=== PATIENT | female | born 1990 | race Two or more races ===

== ENCOUNTER 2022-06-28 10:38 | Emergency (ER) | payer OTHER, MEDICAID ==
[~2022-06-28] VITALS: Ht 152.4 cm; Wt 88.1 kg
[2022-06-28 15:41] LABS: Urine Bacteria NONE SEEN /hpf (None Seen); Urine Blood Negative /uL (Negative); Urine Mucus FEW (None Seen); Urine Specific Gravity 1.035 (1.001-1.035); Urine WBC 6 /hpf (0 - 5)
[2022-06-28] MEDS ORDERED: CEPH-510 PO (15:52)
[2022-06-28 16:24] VITALS: BP 118/72
== END 2022-06-28 16:26 | disposition home or self-care (01) ==
LOC: ER 10:38
DX: O26.892 Other specified pregnancy related conditions, second trimester (principal); S33.5XXA Sprain of ligaments of lumbar spine, initial encounter; O26.891 Other specified pregnancy related conditions, first trimester; R10.2 Pelvic and perineal pain; Z3A.15 15 weeks gestation of pregnancy; Z98.890 Other specified postprocedural states; X58.XXXA Exposure to other specified factors, initial encounter; Y93.9 Activity, unspecified; Y92.89 Other specified places as the place of occurrence of the external cause; Y99.8 Other external cause status
CPT/HCPCS: 36415; 76805; 81001; 84702

== ENCOUNTER → 2022-07-30 | Outpatient (CLI) | payer OTHER ==
[~2022-07-30] MED LIST: CEPH-510 PO
[2022-07-30 10:52] LABS: Basophils % (manual) 0 (0.0-2.0); Blast Cells 0; Eosinophils % (manual) 0 (0-7); Metamyelocytes % 0; Myelocytes % 0; Promyelocytes % 0; Reactive Lymphocytes 0
[2022-07-30 10:58] LABS: Basophils # (auto) 0 10 ^3/uL (0-0.2); Basophils % (auto) 0.4 % (0.0-2.0); Eosinophils # (auto) 0.1 10 ^3/uL (0-0.8); Eosinophils % (auto) 0.7 % (0.0-7.0); Hematocrit 37.5 % (36.0-46.0); Hemoglobin 13.1 g/dL (12.2-16.2); Lymphocytes # (auto) 1.4 10 ^3/uL (0.4-5.4); Lymphocytes % (auto) 14.3 % (10.0-50.0); Mean Corpuscular Hemoglobin 32.2 pg (28.0-32.0); Mean Corpuscular Volume 91.8 fL (80.0-100.0); Monocytes # (auto) 0.6 10 ^3/uL (0-1.3); Monocytes % (auto) 5.7 % (0.0-12.0); Neutrophils # (auto) 7.7 10 ^3/uL (1.6-8.6); Neutrophils % (auto) 78.9 % (37.0-80.0); Red Blood Cells 4.09 10^6/uL (4.0-5.20); Red Cell Distribution Width 13.7 % (11.8-14.3); White Blood Cell 9.8 10^3/uL (4.4-10.8)
[2022-07-30 11:54] LABS: Albumin 3.2 g/dL (3.4-5.0); Calcium 8.7 mg/dL (8.5-10.1); Potassium 3.7 mmol/L (3.5-5.1); Uric Acid 5.4 mg/dL (2.6-6.0)
[2022-07-30 11:57] LABS: BUN/Creatinine Ratio 10.7; Bilirubin, Total 0.4 mg/dL (0.2-1.0); Total Protein 6.9 g/dL (6.4-8.2)
[2022-07-30 17:07] LABS: Band Neutrophils % (manual) 0; Lymphocytes % (manual) 19 (10.0-50.0)
[2022-07-30 17:08] LABS: Monocytes % (manual) 9 (0-12)
== END | disposition home or self-care (01) ==
LOC: LAB 10:38
PROVIDERS: ATTEND Obstetrics & Gynecology
DX: Z34.80 Encounter for supervision of other normal pregnancy, unspecified trimester (principal); Z3A.00 Weeks of gestation of pregnancy not specified
CPT/HCPCS: 36415; 80053; 84550; 85025

== ENCOUNTER → 2022-09-11 | Outpatient (CLI) | payer OTHER, MEDICAID ==
[2022-09-11 08:46] LABS: Basophils # (auto) 0 10 ^3/uL (0-0.2); Basophils % (auto) 0.3 % (0.0-2.0); Eosinophils # (auto) 0.1 10 ^3/uL (0-0.8); Eosinophils % (auto) 1.3 % (0.0-7.0); Hematocrit 35.3 % (36.0-46.0); Hemoglobin 12.2 g/dL (12.2-16.2); Mean Corpuscular Hemoglobin 32.1 pg (28.0-32.0); Mean Corpuscular Hgb Conc. 34.7 g/dL (32.0-36.0); Mean Corpuscular Volume 92.7 fL (80.0-100.0); Monocytes # (auto) 0.8 10 ^3/uL (0-1.3); Monocytes % (auto) 7.6 % (0.0-12.0); Neutrophils % (auto) 72.8 % (37.0-80.0)
== END | disposition home or self-care (01) ==
LOC: LAB 08:18
PROVIDERS: ATTEND Obstetrics & Gynecology
DX: O99.810 Abnormal glucose complicating pregnancy (principal); Z3A.00 Weeks of gestation of pregnancy not specified
CPT/HCPCS: 36415; 82951; 85025

== ENCOUNTER 2022-11-17 16:39 | Observation (INO) | payer OTHER, MEDICAID ==
[2022-11-17] MEDS ORDERED: PREN-96 PO (17:53)
== END 2022-11-17 18:07 | disposition home or self-care (01) ==
LOC: LDRP 16:39 → UNDOADMOB 16:39 → LDRP 16:56 → UNDODISOB 18:07
PROVIDERS: ADMIT Obstetrics & Gynecology; ATTEND Obstetrics & Gynecology
DX: O62.9 Abnormality of forces of labor, unspecified (principal); Z3A.36 36 weeks gestation of pregnancy
CPT/HCPCS: 59025; 81002; 94760; G0378

== ENCOUNTER → 2022-11-18 | Outpatient (CLI) | payer OTHER, MEDICAID ==
[~2022-11-18] MED LIST changes: +PREN-96 PO
[2022-11-18 10:40] LABS: Basophils # (auto) 0 10 ^3/uL (0-0.2); Basophils % (auto) 0.4 % (0.0-2.0); Eosinophils # (auto) 0.1 10 ^3/uL (0-0.8); Eosinophils % (auto) 1.2 % (0.0-7.0); Hematocrit 33.9 % (36.0-46.0); Hemoglobin 11.5 g/dL (12.2-16.2); Lymphocytes # (auto) 1.6 10 ^3/uL (0.4-5.4); Mean Corpuscular Hemoglobin 28.4 pg (28.0-32.0); Mean Corpuscular Hgb Conc. 33.8 g/dL (32.0-36.0); Mean Corpuscular Volume 84.1 fL (80.0-100.0); Monocytes # (auto) 0.8 10 ^3/uL (0-1.3); Monocytes % (auto) 8.3 % (0.0-12.0); Neutrophils % (auto) 73.1 % (37.0-80.0); Red Blood Cells 4.03 10^6/uL (4.0-5.20); White Blood Cell 9.5 10^3/uL (4.4-10.8)
[2022-11-19 07:07] LABS: RPR Non Reactive (Non Reactive)
== END | disposition home or self-care (01) ==
LOC: LAB 10:04
PROVIDERS: ATTEND Obstetrics & Gynecology
DX: Z34.80 Encounter for supervision of other normal pregnancy, unspecified trimester (principal); N76.0 Acute vaginitis; Z3A.00 Weeks of gestation of pregnancy not specified
CPT/HCPCS: 36415; 84112; 85025; 86592

== ENCOUNTER 2022-12-16 11:03 | Observation (INO) | payer OTHER, MEDICAID ==
[2022-12-18] MEDS ORDERED: ACET-1882 PO (23:16)
[2022-12-18] MEDS ORDERED: PRENCAP11 PO (23:16)
[2022-12-18] MEDS ORDERED: DOCU-94 PO (23:16)
[2022-12-18] MEDS ORDERED: IBU600T PO (23:16)
[2022-12-19] MEDS ORDERED: FERR30CA PO (10:56)
== END 2022-12-16 13:09 | disposition home or self-care (01) ==
LOC: LDRP 11:03
PROVIDERS: ADMIT Obstetrics & Gynecology; ATTEND Obstetrics & Gynecology
DX: O48.0 Post-term pregnancy (principal); Z3A.40 40 weeks gestation of pregnancy
CPT/HCPCS: 59025; 76818; G0378

== ENCOUNTER 2023-10-02 16:42 | Emergency (ER) | payer MEDICAID ==
[~2023-10-02] VITALS: Ht 154.9 cm; Wt 87.9 kg
[~2023-10-02 16:42] MED LIST changes: +ACET-1882 PO; -CEPH-510 PO; +DOCU-94 PO; +FERR30CA PO; +IBU600T PO; -PREN-96 PO; +PRENCAP11 PO
[2023-10-02 17:13] LABS: Urine Bacteria None Seen /hpf (None Seen)
[2023-10-02] MEDS: DICYCLOMINE HCL 10 MG CAP PO ONE (17:32)
[2023-10-02] MEDS: ONDANSETRON ODT 4 MG TAB PO ONE (17:33)
[2023-10-02 17:34] VITALS: BP 100/72; PULSE 67; RESP 18; TEMP 98.1; O2SAT 97
[2023-10-02 17:34] LABS: Basophils # (auto) 0 10 ^3/uL (0-0.2); Basophils % (auto) 0.6 % (0.0-2.0); Eosinophils # (auto) 0.1 10 ^3/uL (0-0.8); Eosinophils % (auto) 1.8 % (0.0-7.0); Hematocrit 43.2 % (36.0-46.0); Hemoglobin 14.6 g/dL (12.2-16.2); Lymphocytes # (auto) 1.8 10 ^3/uL (0.4-5.4); Lymphocytes % (auto) 24.9 % (10.0-50.0); Mean Corpuscular Hgb Conc. 33.9 g/dL (32.0-36.0); Mean Corpuscular Volume 88.6 fL (80.0-100.0); Monocytes # (auto) 0.5 10 ^3/uL (0-1.3); Monocytes % (auto) 6.8 % (0.0-12.0); Neutrophils # (auto) 4.7 10 ^3/uL (1.6-8.6); Neutrophils % (auto) 65.9 % (37.0-80.0); Red Blood Cells 4.87 10^6/uL (4.0-5.20); Red Cell Distribution Width 13.8 % (11.8-14.3); White Blood Cell 7.2 10^3/uL (4.4-10.8)
[2023-10-02 17:43] LABS: Urine Blood 1+ /uL (Negative); Urine Clarity Turbid (Clear); Urine Color Yellow (Yellow); Urine Mucus FEW (None Seen); Urine Protein, UAD TRACE (Negative); Urine Specific Gravity 1.034 (1.001-1.035); Urine Urobilinogen Normal (Negative); Urine WBC 41 /hpf (0 - 5); Urine pH 5.5 (5.0-9.0)
[2023-10-02 17:59] LABS: Alanine Aminotransferase 16 U/L (7-40); Albumin 4.6 g/dL (3.2-4.8); Alkaline Phosphatase 97 U/L (46-116); Anion Gap 8 (5-15); Aspartate Aminotransferase 12 U/L (13-40); BUN/Creatinine Ratio 12.7 (10.0-20.0); Bilirubin, Total 0.7 mg/dL (0.2-1.0); Blood Urea Nitrogen 10 mg/dL (9-23); Calcium 9.5 mg/dL (8.7-10.4); Carbon Dioxide 27 mmol/L (20-30); Chloride 104 mmol/L (98-107); Glucose 117 mg/dL (74-106); Lipase 42 U/L (12-53); Potassium 3.6 mmol/L (3.5-5.1); Sodium 139 mmol/L (136-145); Total Protein 7.5 g/dL (5.7-8.2)
[2023-10-02] MEDS ORDERED: ZOFR4T PO (19:36)
[2023-10-02] MEDS ORDERED: DICY10CA PO (19:36)
[2023-10-02] MEDS ORDERED: ACET500T58 PO (19:36)
[2023-10-02] MEDS ORDERED: NITR-87 PO (19:36)
[2023-10-02] MEDS: NITROFURANTOIN 100 mg CAP PO ONE (20:07)
== END 2023-10-02 20:09 | disposition home or self-care (01) ==
LOC: ER 16:42
DX: N39.0 Urinary tract infection, site not specified (principal); K80.20 Calculus of gallbladder without cholecystitis without obstruction; K57.30 Diverticulosis of large intestine without perforation or abscess without bleeding; Z79.899 Other long term (current) drug therapy
CPT/HCPCS: 36415; 74176; 80053; 81001; 83690; 85025; 99284; J0500; Q0162

== ENCOUNTER 2024-03-17 14:40 | Inpatient (IN) | payer MEDICAID ==
[~2024-03-17] VITALS: Ht 154.9 cm; Wt 83.6 kg
[~2024-03-17 14:40] MED LIST changes: +ACET500T58 PO; +DICY10CA PO; +NITR-87 PO; +ZOFR4T PO
[2024-03-17 16:43] LABS: Urine Bacteria None Seen /hpf (None Seen)
[2024-03-17 17:13] LABS: Urine Blood Negative /uL (Negative); Urine Clarity Clear (Clear); Urine Color Dark-Yellow (Yellow); Urine Mucus FEW (None Seen); Urine Protein, UAD TRACE (Negative); Urine Specific Gravity 1.022 (1.001-1.035); Urine Urobilinogen 2 mg/dL (Negative); Urine WBC 4 /hpf (0 - 5)
[2024-03-17] MEDS ORDERED: PIPERACILLIN-TAZOB 3.375GM 100 ML IV ONE (18:00)
[2024-03-17 18:51] LABS: Basophils # (auto) 0.1 10 ^3/uL (0-0.2); Basophils % (auto) 0.7 % (0.0-2.0); Eosinophils # (auto) 0.1 10 ^3/uL (0-0.8); Eosinophils % (auto) 0.6 % (0.0-7.0); Hematocrit 39.6 % (36.0-46.0); Hemoglobin 13.3 g/dL (12.2-16.2); Lymphocytes % (auto) 12.2 % (10.0-50.0); Mean Corpuscular Hemoglobin 30.2 pg (28.0-32.0); Mean Corpuscular Hgb Conc. 33.5 g/dL (32.0-36.0); Mean Corpuscular Volume 90.2 fL (80.0-100.0); Monocytes # (auto) 0.6 10 ^3/uL (0-1.3); Monocytes % (auto) 7.2 % (0.0-12.0); Neutrophils # (auto) 6.7 10 ^3/uL (1.6-8.6); Neutrophils % (auto) 79.3 % (37.0-80.0); Platelet Count (auto) 298 10^3/uL (140-450); Red Blood Cells 4.39 10^6/uL (4.0-5.20); Red Cell Distribution Width 14.3 % (11.8-14.3); White Blood Cell 8.5 10^3/uL (4.4-10.8)
[2024-03-17] MEDS: SODIUM CHLORIDE 0.9% 1,000 ML IV ONE (18:51)
[2024-03-17] MEDS: ONDANSETRON HCL 4 MG/2 ML VIAL IV ONE (18:51)
[2024-03-17] MEDS: PIPERACILLIN-TAZOB 3.375GM 100 ML IV ONE (18:51)
[2024-03-17 19:00] VITALS: PULSE 54; RESP 17; O2SAT 100
[2024-03-17 19:09] LABS: Alanine Aminotransferase 433 U/L (7-40); Albumin 4.5 g/dL (3.2-4.8); Alkaline Phosphatase 190 U/L (46-116); Anion Gap 7 (5-15); Aspartate Aminotransferase 131 U/L (13-40); Bilirubin, Total 5.2 mg/dL (0.2-1.0); Calcium 9.4 mg/dL (8.7-10.4); Carbon Dioxide 24 mmol/L (20-31); Chloride 105 mmol/L (98-107); Glucose 84 mg/dL (74-106); Lipase 34 U/L (12-53); Potassium 3.5 mmol/L (3.5-5.1); Sodium 136 mmol/L (136-145); Total Protein 7.2 g/dL (5.7-8.2)
[2024-03-17 19:22] LABS: BUN/Creatinine Ratio 8.9 (10.0-20.0); Blood Urea Nitrogen < 5 mg/dL (9-23)
[2024-03-17] MEDS: IOHEXOL 300 MG/ML 100ML BOTTLE IJ ONE (20:35)
[2024-03-17] MEDS: fentaNYL CITRATE 100 MCG/2 ML VL IV ONE (21:38)
[2024-03-18] MEDS ORDERED: DOCUSATE SOD 100 MG CAP PO PRN (00:30)
[2024-03-18] MEDS ORDERED: NITROGLYCERIN 0.4 MG SL TAB SL PRN ×2 (00:30→11:00)
[2024-03-18] MEDS: D5W/SOD CHLO 0.9% 1,000 ML IV SCH (00:39)
[2024-03-18] MEDS: MORPHINE SULFATE INJ 2 MG/ml SYRG IV PRN (00:41)
[2024-03-18] MEDS: ONDANSETRON HCL 4 MG/2 ML VIAL IV PRN (00:42)
[2024-03-18 01:00] VITALS: BP 127/73; PULSE 54; RESP 20; TEMP 98.1; O2SAT 99
[2024-03-18] MEDS: IBUPROFEN 600 MG TAB PO PRN (03:39)
[2024-03-18] MEDS: PIPERACILLIN-TAZOB 3.375GM 100 ML IV SCH (06:07)
[2024-03-18 06:55] LABS: Basophils # (auto) 0 10 ^3/uL (0-0.2); Basophils % (auto) 0.4 % (0.0-2.0); Eosinophils # (auto) 0 10 ^3/uL (0-0.8); Eosinophils % (auto) 0.5 % (0.0-7.0); Hematocrit 35.9 % (36.0-46.0); Hemoglobin 12.4 g/dL (12.2-16.2); Lymphocytes # (auto) 0.8 10 ^3/uL (0.4-5.4); Lymphocytes % (auto) 9.8 % (10.0-50.0); Mean Corpuscular Hemoglobin 31.4 pg (28.0-32.0); Mean Corpuscular Hgb Conc. 34.6 g/dL (32.0-36.0); Mean Corpuscular Volume 90.6 fL (80.0-100.0); Monocytes # (auto) 0.5 10 ^3/uL (0-1.3); Monocytes % (auto) 6.2 % (0.0-12.0); Neutrophils % (auto) 83.1 % (37.0-80.0); Platelet Count (auto) 275 10^3/uL (140-450); Red Blood Cells 3.96 10^6/uL (4.0-5.20); Red Cell Distribution Width 14.5 % (11.8-14.3); White Blood Cell 8.4 10^3/uL (4.4-10.8)
[2024-03-18 07:02] LABS: Alanine Aminotransferase 339 U/L (7-40); Albumin 3.9 g/dL (3.2-4.8); Alkaline Phosphatase 190 U/L (46-116); Anion Gap 11 (5-15); Aspartate Aminotransferase 87 U/L (13-40); BUN/Creatinine Ratio 8.9 (10.0-20.0); Bilirubin, Total 5.2 mg/dL (0.2-1.0); Blood Urea Nitrogen 5 mg/dL (9-23); Calcium 8.7 mg/dL (8.7-10.4); Carbon Dioxide 19 mmol/L (20-31); Chloride 107 mmol/L (98-107); Glucose 91 mg/dL (74-106); Potassium 3.4 mmol/L (3.5-5.1); Sodium 137 mmol/L (136-145); Total Protein 6.4 g/dL (5.7-8.2)
[2024-03-18 11:21] VITALS: PULSE 80; RESP 74; O2SAT 97
[2024-03-18] MEDS ORDERED: SENN-199 PO (19:10)
[2024-03-18] MEDS ORDERED: HYDR-4902 PO (19:10)
[2024-03-18 20:00] VITALS: PULSE 60; RESP 17; O2SAT 100
[2024-03-18 21:00] VITALS: BP 124/69; PULSE 60; RESP 17; TEMP 97.3; O2SAT 100
[2024-03-19] VITALS (7 sets, daily range): BP systolic 108–134; BP diastolic 54–82; PULSE 47–60; RESP 17–20; TEMP 97.5–98.3; O2SAT 97–100
[2024-03-19] MEDS: MORPHINE SULFATE INJ 2 MG/ml SYRG IV ONE (02:41)
[2024-03-19] MEDS: HYDROcodone-ACET 5/325MG TAB PO PRN (06:10)
[2024-03-19 07:33] LABS: Basophils # (auto) 0 10 ^3/uL (0-0.2); Basophils % (auto) 0.5 % (0.0-2.0); Eosinophils # (auto) 0.1 10 ^3/uL (0-0.8); Eosinophils % (auto) 1.5 % (0.0-7.0); Hematocrit 34.1 % (36.0-46.0); Hemoglobin 11.9 g/dL (12.2-16.2); Lymphocytes # (auto) 0.8 10 ^3/uL (0.4-5.4); Lymphocytes % (auto) 10.5 % (10.0-50.0); Mean Corpuscular Hemoglobin 31.5 pg (28.0-32.0); Mean Corpuscular Hgb Conc. 34.8 g/dL (32.0-36.0); Mean Corpuscular Volume 90.4 fL (80.0-100.0); Monocytes # (auto) 0.6 10 ^3/uL (0-1.3); Neutrophils # (auto) 6.3 10 ^3/uL (1.6-8.6); Neutrophils % (auto) 79.5 % (37.0-80.0); Platelet Count (auto) 275 10^3/uL (140-450); Red Blood Cells 3.77 10^6/uL (4.0-5.20); Red Cell Distribution Width 14.1 % (11.8-14.3)
[2024-03-19 07:36] LABS: Alanine Aminotransferase 256 U/L (7-40); Albumin 3.5 g/dL (3.2-4.8); Alkaline Phosphatase 201 U/L (46-116); Anion Gap 8 (5-15); Aspartate Aminotransferase 63 U/L (13-40); Bilirubin, Total 4.8 mg/dL (0.2-1.0); Calcium 8.7 mg/dL (8.7-10.4); Carbon Dioxide 23 mmol/L (20-31); Chloride 107 mmol/L (98-107); Glucose 95 mg/dL (74-106); Potassium 3.5 mmol/L (3.5-5.1); Sodium 138 mmol/L (136-145); Total Protein 5.9 g/dL (5.7-8.2)
[2024-03-19 07:46] LABS: BUN/Creatinine Ratio 8.3 (10.0-20.0); Blood Urea Nitrogen < 5 mg/dL (9-23)
[2024-03-19] MEDS: ENOXAPARIN SOD 40 MG/0.4 ML SYRINGE SC ONE (18:43)
[2024-03-19] MEDS: PANTOPRAZOLE 40 MG/10 ML VIAL INJ IV ONE (18:43)
[2024-03-19] MEDS: MORPHINE SULFATE INJ 2 MG/ml SYRG IV PRN (23:14)
[2024-03-20] VITALS (8 sets, daily range): BP systolic 100–128; BP diastolic 56–78; PULSE 48–58; RESP 17–20; TEMP 97.7–98.6; O2SAT 97–100
[2024-03-20 07:04] LABS: Basophils # (auto) 0 10 ^3/uL (0-0.2); Basophils % (auto) 0.8 % (0.0-2.0); Eosinophils # (auto) 0.2 10 ^3/uL (0-0.8); Hematocrit 33.2 % (36.0-46.0); Hemoglobin 11.6 g/dL (12.2-16.2); Lymphocytes # (auto) 1.3 10 ^3/uL (0.4-5.4); Lymphocytes % (auto) 21.3 % (10.0-50.0); Mean Corpuscular Hemoglobin 31.5 pg (28.0-32.0); Mean Corpuscular Hgb Conc. 34.9 g/dL (32.0-36.0); Mean Corpuscular Volume 90.3 fL (80.0-100.0); Monocytes # (auto) 0.6 10 ^3/uL (0-1.3); Neutrophils # (auto) 3.9 10 ^3/uL (1.6-8.6); Neutrophils % (auto) 64.9 % (37.0-80.0); Platelet Count (auto) 274 10^3/uL (140-450); Red Blood Cells 3.67 10^6/uL (4.0-5.20)
[2024-03-20 07:30] LABS: Alanine Aminotransferase 205 U/L (7-40); Albumin 3.4 g/dL (3.2-4.8); Alkaline Phosphatase 208 U/L (46-116); Anion Gap 7 (5-15); Aspartate Aminotransferase 63 U/L (13-40); Bilirubin, Total 4.9 mg/dL (0.2-1.0); Calcium 8.7 mg/dL (8.7-10.4); Carbon Dioxide 26 mmol/L (20-31); Chloride 107 mmol/L (98-107); Glucose 106 mg/dL (74-106); Potassium 3.1 mmol/L (3.5-5.1); Sodium 140 mmol/L (136-145); Total Protein 5.6 g/dL (5.7-8.2)
[2024-03-20 07:36] LABS: BUN/Creatinine Ratio 8.3 (10.0-20.0); Blood Urea Nitrogen < 5 mg/dL (9-23)
[2024-03-20] MEDS: PANTOPRAZOLE 40 MG/10 ML VIAL INJ IV SCH (09:44)
[2024-03-20] MEDS: ENOXAPARIN SOD 40 MG/0.4 ML SYRINGE SC SCH (09:44)
[2024-03-20] MEDS: POTASSIUM CHL 20MEQ/100ML 100 ML IV SCH ×2 (09:45→21:56)
[2024-03-20 17:39] LABS: COVID19 ANTIGEN SOFIA FIA NEGATIVE (NEGATIVE)
[2024-03-21] VITALS (9 sets, daily range): BP systolic 100–118; BP diastolic 34–73; PULSE 46–56; RESP 16–19; TEMP 98–98.2; O2SAT 97–100
[2024-03-21] MEDS: PIPERACILLIN-TAZOB 3.375GM 100 ML IV SCH (02:52)
[2024-03-21 07:10] LABS: Chloride 105 mmol/L (98-107); Potassium 3.4 mmol/L (3.5-5.1); Sodium 140 mmol/L (136-145)
[2024-03-21 07:11] LABS: Anion Gap 7 (5-15); Carbon Dioxide 28 mmol/L (20-31)
[2024-03-21 07:12] LABS: Calcium 9.3 mg/dL (8.7-10.4)
[2024-03-21 07:16] LABS: Basophils # (auto) 0.1 10 ^3/uL (0-0.2); Eosinophils # (auto) 0.2 10 ^3/uL (0-0.8); Eosinophils % (auto) 3.5 % (0.0-7.0); Hematocrit 35.5 % (36.0-46.0); Hemoglobin 12.3 g/dL (12.2-16.2); Lymphocytes # (auto) 1.3 10 ^3/uL (0.4-5.4); Lymphocytes % (auto) 21.7 % (10.0-50.0); Mean Corpuscular Hemoglobin 31.6 pg (28.0-32.0); Mean Corpuscular Hgb Conc. 34.7 g/dL (32.0-36.0); Mean Corpuscular Volume 90.9 fL (80.0-100.0); Monocytes # (auto) 0.5 10 ^3/uL (0-1.3); Monocytes % (auto) 8.2 % (0.0-12.0); Neutrophils # (auto) 3.9 10 ^3/uL (1.6-8.6); Neutrophils % (auto) 65.6 % (37.0-80.0); Nucleated Red Blood Cells % 0.1 %; Platelet Count (auto) 302 10^3/uL (140-450); Red Cell Distribution Width 15.1 % (11.8-14.3); White Blood Cell 5.9 10^3/uL (4.4-10.8)
[2024-03-21 07:17] LABS: BUN/Creatinine Ratio 8.5 (10.0-20.0); Blood Urea Nitrogen < 5 mg/dL (9-23); Glucose 97 mg/dL (74-106)
[2024-03-21 08:46] LABS: Bilirubin, Direct 3.5 mg/dL (<0.3); Bilirubin, Total 4.9 mg/dL (0.2-1.0)
[2024-03-21] MEDS: POTASSIUM CHL 20MEQ/100ML 100 ML IV SCH (09:04)
== END 2024-03-21 21:30 | disposition short-term general hospital (02) ==
LOC: ER 14:43 → OVERFLOW 03-18 00:31 → WEST WING 03-18 18:12
PROVIDERS: ADMIT Internal Medicine; ATTEND Internal Medicine
DX: K80.50 Calculus of bile duct without cholangitis or cholecystitis without obstruction (principal); E87.6 Hypokalemia; R74.01 Elevation of levels of liver transaminase levels; K83.8 Other specified diseases of biliary tract; Z90.49 Acquired absence of other specified parts of digestive tract; Z79.899 Other long term (current) drug therapy
CPT/HCPCS: 36415; 74177; 74181; 80048; 80053; 81001; 82247; 82248; 83605; 83690; 84075; 84450; 84460; 84484; 84702; 85025; 87040; 87081; 87426; 99291; G0378; J2405; J2470; J2543; J3480

== ENCOUNTER 2024-07-21 09:20 | Emergency (ER) | payer MEDICAID ==
[~2024-07-21] VITALS: Ht 152.4 cm; Wt 83.7 kg
[~2024-07-21 09:20] MED LIST changes: +HYDR-4902 PO; +SENN-199 PO
[2024-07-21 09:49] VITALS: BP 117/48; PULSE 78; RESP 16; TEMP 99.3; O2SAT 98
--- NOTE | 2024-07-21 10:18 | ED.PDOC ---
INTERIOR DECORATOR HPI Comments A 34 YEAR OLD FEMALE PRESENTS TO THE ED WITH COMPLAINT OF ABNORMAL VAGINAL SPOTTING, PELVIC CRAMPS, AND POSSIBLE X 5 DAYS. PATIENT REPORTS THAT HER LAST MENSTRUAL PERIOD WAS 06/09/2024. PATIENT MENTIONS THAT SHE TOOK AN AT- HOME TEST AND IT WAS POSITIVE. PATIENT MENTIONS THAT HER BLEEDING QUALITY IS SPOTTING AND IS ASSOCIATED WITH CRAMPING. PATIENT REPORTS THAT HER ABDOMINAL PAIN IS LOCALIZED TO HER SUPRAPUBIC REGION, NONRADIATING, AND DESCRIBES CRAMPING. PATIENT DENIES FEVER, CHILLS, SHORTNESS OF BREATH, CHEST PAIN, NAUSEA, VOMITING, HEADACHE, OR OTHER COMPLAINTS. NO OTHER SYMPTOMS OR MODIFYING FACTORS AT THIS TIME. PATIENT IS ALERT, ORIENTED X 4, AND HAS STEADY GAIT. Chief Complaint: Time Seen by MD: 09:56 Reviewed Notes: Nurses Notes, Medications, Allergies Allergies: Coded Allergies: NO KNOWN ALLERGIES (Unverified , 06/28/22) Home Meds Active Scripts Acetaminophen (Acetaminophen) 500 Mg Tab, 500 MG PO Q4HP PRN, #30 TAB Prov:ANA LAURA REYNAGA PAC 10/02/23 Dicyclomine Hcl (BENTYL CAPSULE) 10 Mg Cp, 1 CAP PO Q6HPRN, #20 CAP 0 Refills Prov:ANA LAURA REYNAGA PAC 10/02/23 Ondansetron Odt 4MG Tab (ZOFRAN PO) 4 Mg Tb, 4 MG PO Q6HP PRN, #20 TAB ODT TAB-DISSOLVE IN MOUTH, THEN SWALLOW Prov:ANA LAURA REYNAGA PAC 10/02/23 Nitrofurantoin Monohydrate Mac (Macrobid) 100 Mg Cap, 100 MG PO BID for 7 Days, #14 CAP Prov:ANA LAURA REYNAGA PAC 10/02/23 Ferric Maltol (Accrufer) 30 Mg Cap, 30 MG PO BID for 30 Days, #60 CAP Prov:GIULIANO HENSON CN 12/19/22 Docusate Sodium (Colace) 100 Mg Cap, 100 MG PO DAILYP PRN, #30 CAP Prov:GIULIANO HENSON CN 12/18/22 Ibuprofen Micronized (MOTRIN TABLET) 600 Mg Tb, 600 MG PO Q6HP PRN for 10 Days, #40 TAB Prov:GIULIANO HENSON 12/18/22 Acetaminophen (Acetaminophen) 325 Mg Tab, 650 MG PO Q6HP PRN for 10 Days, #80 TAB Prov:GIULIANO HENSON [facility] 12/18/22 Vit W/ Fe Fum-Iron Po (Concept Dha) Cap, 1 CAP PO DAILY, #90 CAP 3 Refills Prov:GIULIANO HENSON [facility] 12/18/22 Reported Medications Hydrocodone-Acetaminophen (Hydrocodone Bitartrate/AC 5-325 mg) 1 Tab Tab, 1 TAB PO Q4HPRN PRN for PAIN SCALE 1 THRU 6, TAB 03/18/24 Sennosides-Docusate Sodium (Stimulant Laxative 8.6-50 mg) 1 Tab Tab, 1 TAB PO DAILY, TAB 03/18/24 Information Source: Patient Mode of Arrival: Ambulatory Timing: Days Prehospital treatment: None Severity: Mild Vaginal Discharge: None Vaginal Lesions: None Vaginal Mass: None Onset Of Mass/Bleeding: Spontaneous Sexual Activity: Sexually Active, Last Consensual [place]: Unknown Control: None History of: Current Blood Type: Unknown Symptoms of Possible : None Associated Signs and Symptoms: Cramping, Other (VAGINAL SPOTTING ) Past Medical History PAST MEDICAL HISTORY: Denies Surgical History: Denies all surgeries 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: Ovarian Cysts Family History Family History: Reviewed,noncontributory to illness Social History Smoker: Non-Smoker Alcohol: Denies ETOH Use Drugs: Denies Drug Use Lives In: Home Constitutional: denies: chills, diaphoresis, fatigue, fever, malaise, sweats, weakness, others EENTM: denies: blurred vision, double vision, ear bleeding, ear discharge, ear drainage, ear pain, ear ringing, eye pain, eye redness, hearing loss, mouth pain, mouth swelling, nasal discharge, nose bleeding, nose congestion, nose pain, photophobia, tearing, throat pain, throat swelling, voice changes, others Respiratory: denies: cough, hemoptysis, orthopnea, SOB at rest, shortness of breath, SOB with excertion, stridor, wheezing, others Cardiovascular: denies: chest pain, dizzy spells, diaphoresis, Dyspnea on exertion, edema, irregular heart beat, left arm pain, lightheadedness, palpitations, PND, syncope, others Gastrointestinal: denies: abdomen distended, abdominal pain, blood streaked bowels, constipated, diarrhea, dysphagia, difficulty swallowing, hematemesis, melena, nausea, poor appetite, poor fluid intake, rectal bleeding, rectal pain, vomiting, others Genitourinary: reports: abnormal vagina bleeding (SPOTTING ), ; denies: burning, dyspareunia, dysuria, flank pain, frequency, hematuria, incontinence, pain, vagina discharge, urgency, others Neurological: denies: dizziness, fainting, headache, left sided numbness, left sided weakness, numbness, paresthesia, pre-existing deficit, right sided numbness, right sided weakness, seizure, speech problems, tingling, tremors, weakness, others Musculoskeletal: denies: back pain, gout, joint pain, joint swelling, muscle pain, muscle stiffness, neck pain, others Integumetry: denies: bruises, change in color, change in hair/nails, dryness, laceration, lesions, lumps, rash, wounds, others Allergic/Immunocompromised: denies: Difficulty Healing, Frequent Infections, Hives, Itching, others Hematologic/Lymphatic: denies: anemia, blood clots, easy bleeding, easy bruising, swollen glands, others Endocrine: denies: excessive hunger, excessive sweating, excessive thirst, excessive urination, flushing, intolerance to cold, intolerance to heat, unexplained weight gain, unexplained weight loss, others Psychiatric: denies: anxiety, bipolar disorder, depression, hopeless, panic disorder, schizophrenia, sleepless, suicidal, others All Other Systems: Reviewed and Negative Physical Exam General Appearance: No Apparent Distress, Normal HEENT: Normal ENT Inspection, PERRL/EOMI, Pharynx Normal, TMs Normal Neck: Full Range of Motion, Non-Tender, Normal, Normal Inspection Respiratory: Chest Non-Tender, Lungs Clear, No Accessory Muscle Use, No Respiratory Distress, Normal Breath Sounds Cardiovascular: No Edema, No JVD, No Murmur, No Gallop, Normal Peripheral Pulses, Regular Rate/Rhythm Breast Exam: Deferred Gastrointestinal: No Organomegaly, Non Tender, No Pulsatile Mass, Normal Bowel Sounds, Soft Genitalia: Deferred Pelvic: Normal External Exam, Other (VAGINAL SPOTTING, NO VAGINAL BLEEDING AND BLOOD CLOTS. 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 Was a procedure done?: No Differential Diagnosis (SENIOR VICE PRESIDENT AND CHIEF INFORMATION OFFICER) Vaginal Bleeding: - Threatened, Ectopic , UTI, Vaginitis Vaginal Discharge: X-Ray, Labs, Meds, VS Vital Signs Date Time Temp Pulse Resp B/P (MAP) Pulse Ox O2 Delivery O2 Flow Rate FiO2 07/21/24 09:49 78 16 98 Room Air 07/21/24 09:49 99.3 78 16 117/48 (71) 98 99.3 07/21/24 09:32 99.3 78 16 117/48 (71) 98 Lab Test 07/21/24 10:10 07/21/24 09:34 Range/Units White Blood Count 7.2 4.4-10.8 10^3/uL Red Blood Count 4.84 4.0-5.20 10^6/uL Hemoglobin 14.1 12.2-16.2 g/dL Hematocrit 42.2 36.0-46.0 % Mean Corpuscular Volume 87.3 80.0-100.0 fL Mean Corpuscular Hemoglobin 29.2 28.0-32.0 pg Mean Corpuscular Hemoglobin Concent 33.4 32.0-36.0 g/dL Red Cell Distribution Width 14.3 11.8-14.3 % Platelet Count 310 140-450 10^3/uL Mean Platelet Volume 7.3 6.9-10.8 fL Neutrophils (%) (Auto) 71.3 37.0-80.0 % Lymphocytes (%) (Auto) 21.0 10.0-50.0 % Monocytes (%) (Auto) 5.8 0.0-12.0 % Eosinophils (%) (Auto) 1.2 0.0-7.0 % Basophils (%) (Auto) 0.7 0.0-2.0 % Neutrophils # (Auto) 5.1 1.6-8.6 10 ^3/uL Lymphocytes # (Auto) 1.5 0.4-5.4 10 ^3/uL Monocytes # (Auto) 0.4 0-1.3 10 ^3/uL Eosinophils # (Auto) 0.1 0-0.8 10 ^3/uL Basophils # (Auto) 0.1 0-0.2 10 ^3/uL Nucleated Red Blood Cells 0.0 % Beta HCG, Quantitative 9036.3 H 1.5-4.2 mIU/mL Urine Color Light-yellow Yellow Urine Clarity Clear Clear Urine pH 5.5 5.0-9.0 Urine Specific Rice 1.016 1.001-1.035 Urine Protein Negative Negative Urine Ketones Negative Negative Urine Blood Negative Negative /uL Urine Nitrite Negative Negative Urine Bilirubin Negative Negative Urine Urobilinogen Normal Negative mg/dL Urine Leukocyte Esterase 1+ Negative /uL Urine RBC 1 0 - 4 /hpf Urine Microscopic WBC 3 0-5 /HPF Urine Squamous Epithelial Cells Few <5 /hpf Urine Bacteria Few H None Seen /hpf Urine Glucose Normal Normal mg/dL Urine Test Positive Negative FINDINGS: The uterus measures 9.2 x 5.3 x 6.4 cm. The cervix not well visualized. Right ovary measures 2.9 x 2.9 x 2.1 cm with normal Doppler color flow. There is a right hemorrhagic ovarian cyst measuring 1.7 cm. Left ovary measures 2.5 x 2.7 x 1.7 cm with normal Doppler color flow Cystic structure in the endometrium measuring 0.8 cm. No pole is visualized. Yolk sac is visualized. No heart rate is detected. IMPRESSION: Gestational sac with yolk sac measuring 0.8 cm in the endometrium. No heart rate is detected. Correlate with beta HCG and short-term follow-up pelvic ultrasound as clinically indicated. ATED BY: COLLEEN GLEASON MD DICTATED DATE/TIME: 07/21/24 124 SIGNED BY: COLLEEN GLEASON MD SIGNED DATE/TIME: 07/21/24 124 CC: X-Ray, Labs, Meds, VS Comment EXTERNAL MEDICAL RECORDS REVIEWED: [NONE] INDEPENDENT HISTORIANS: [NONE] SOCIAL DETERMINANTS OF HEALTH: [NONE] LABS ORDERED: NONE REVIEWED AND INTERPRETED RESULTS: NONE IMAGING ORDERED: NONE TREATMENTS ORDERED: PROCEDURES PERFORMED: NONE CRITICAL CARE TIME: NONE I HAVE DISCUSSED THE PATIENT WITH THE ATTENDING PHYSICIAN DR. BENÍTEZ AND HE AGREES WITH THE PATIENT'S PLAN OF CARE AND DISPOSITION. BASED ON HISTORY OF PRESENT ILLNESS, AND PHYSICAL EXAM, PATIENT WILL BE DISCHARGED HOME. DISCUSSED PLAN FOR DISCHARGE HOME WITH RX []. MEDICATION WARNINGS GIVEN. SHARED DECISION MAKING: DISCUSSED WITH PATIENT THAT THEIR WORKUP WAS NORMAL. PATIENT INSTRUCTED TO FOLLOW UP WITH PRIMARY CARE PROVIDER IN 1-2 DAYS FOR RE- EVALUATION OF SYMPTOMS. PATIENT VERBALIZES UNDERSTANDING TO RETURN TO ED FOR NEW OR WORSENING SYMPTOMS OR IF FOLLOW UP WITH PCP CANNOT BE OBTAINED. PATIENT FEELS COMFORTABLE GOING HOME AT THIS TIME. ALL QUESTIONS ADDRESSED AT TIME OF DISCHARGE. Time of 1ST Reevaluation: 12:52 Reevaluation 1ST: Improved Patient Education/Counseling: Diagnosis, Treatment, Prognosis Family Education/Counseling: Diagnosis, Treatment, Prognosis Medical Screening: No EMC Exist At This Time Departure 1 Departure Time of Disposition: 12:52 Impression: Primary Impression: Vaginal spotting Additional Impression: Threatened in early Disposition: 01 HOME / SELF CARE / HOMELESS Condition: Stable Additional Instructions: FOLLOW-UP WITH INTERIOR DECORATOR IN 2 DAYS. TAKE MEDICATIONS PRESCRIBED. RETURN TO ED FOR ANY NEW OR WORSENING SYMPTOMS. Discharged With: Self Critical Care Note Critical Care Time?: No Stability Stability form required: No Heart Score Heart Score: Heart Score Response (Comments) Value History N/A 0 EKG N/A 0 Age N/A 0 Risk Factors N/A 0 Troponin N/A 0 Total 0 I personally scribed for ROWENA HERNANDEZ ([email or web address]) on 07/21/24 at 10:18. Electronically submitted by Jerry Santiago ([email or web address]). ROWENA HERNANDEZ Jul 21, 2024 10:18
[2024-07-21 10:27] LABS: Basophils # (auto) 0.1 10 ^3/uL (0-0.2); Basophils % (auto) 0.7 % (0.0-2.0); Eosinophils # (auto) 0.1 10 ^3/uL (0-0.8); Eosinophils % (auto) 1.2 % (0.0-7.0); Hematocrit 42.2 % (36.0-46.0); Hemoglobin 14.1 g/dL (12.2-16.2); Lymphocytes # (auto) 1.5 10 ^3/uL (0.4-5.4); Mean Corpuscular Hemoglobin 29.2 pg (28.0-32.0); Mean Corpuscular Hgb Conc. 33.4 g/dL (32.0-36.0); Mean Corpuscular Volume 87.3 fL (80.0-100.0); Monocytes # (auto) 0.4 10 ^3/uL (0-1.3); Monocytes % (auto) 5.8 % (0.0-12.0); Neutrophils # (auto) 5.1 10 ^3/uL (1.6-8.6); Neutrophils % (auto) 71.3 % (37.0-80.0); Platelet Count (auto) 310 10^3/uL (140-450); Red Blood Cells 4.84 10^6/uL (4.0-5.20); Red Cell Distribution Width 14.3 % (11.8-14.3); White Blood Cell 7.2 10^3/uL (4.4-10.8)
[2024-07-21 11:04] LABS: Urine Bacteria FEW /hpf (None Seen); Urine Blood Negative /uL (Negative); Urine Clarity Clear (Clear); Urine Color Light-Yellow (Yellow); Urine Protein, UAD Negative (Negative); Urine Specific Gravity 1.016 (1.001-1.035); Urine Squamous Epithelial Cell FEW /hpf (<5); Urine Urobilinogen Normal (Negative); Urine WBC 3 /HPF (0-5); Urine pH 5.5 (5.0-9.0)
--- NOTE | 2024-07-21 12:44 | DVH ---
OB ULTRASOUND <14 WEEKS: HISTORY: VAGINAL SPOTTING TECHNIQUE: Multiple real-time grayscale sonographic images of the pelvis with duplex Doppler color f low, spectral and M-mode analysis. TRANSDUCERS: Transabdominal and transvaginal FINDINGS: The uterus measures 9.2 x 5.3 x 6.4 cm. The cervix not well visualized. Right ovary measures 2.9 x 2.9 x 2.1 cm with normal Doppler color flow. There is a right hemorrhagic ovarian cyst measuring 1.7 cm. Left ovary measures 2.5 x 2.7 x 1.7 cm with normal Doppler color flow Cystic structure in the endometrium measuring 0.8 cm. No pole is visualized. Yolk sac is visua lized. No heart rate is detected. IMPRESSION: Gestational sac with yolk sac measuring 0.8 cm in the endometrium. No heart rate is detected. C orrelate with beta HCG and short-term follow-up pelvic ultrasound as clinically indicated.
== END 2024-07-21 12:55 | disposition home or self-care (01) ==
LOC: ER 09:20
DX: O20.0 Threatened abortion (principal); R10.2 Pelvic and perineal pain; Z79.899 Other long term (current) drug therapy; Z3A.00 Weeks of gestation of pregnancy not specified
CPT/HCPCS: 36415; 76801; 76817; 81001; 81025; 84702; 85025

== ENCOUNTER → 2024-09-07 | Outpatient (CLI) | payer MEDICAID ==
[2024-09-07 13:09] LABS: Basophils # (auto) 0.1 10 ^3/uL (0-0.2); Basophils % (auto) 0.6 % (0.0-2.0); Eosinophils # (auto) 0.1 10 ^3/uL (0-0.8); Hematocrit 41.5 % (36.0-46.0); Hemoglobin 14.5 g/dL (12.2-16.2); Lymphocytes # (auto) 1.8 10 ^3/uL (0.4-5.4); Lymphocytes % (auto) 16.8 % (10.0-50.0); Mean Corpuscular Hemoglobin 31.6 pg (28.0-32.0); Mean Corpuscular Volume 90.2 fL (80.0-100.0); Monocytes # (auto) 0.5 10 ^3/uL (0-1.3); Monocytes % (auto) 4.9 % (0.0-12.0); Neutrophils # (auto) 8.1 10 ^3/uL (1.6-8.6); Neutrophils % (auto) 76.7 % (37.0-80.0); Platelet Count (auto) 279 10^3/uL (140-450); Red Cell Distribution Width 15.7 % (11.8-14.3); White Blood Cell 10.5 10^3/uL (4.4-10.8)
[2024-09-07 13:43] LABS: Amphetamine Screen, Urine Neg (NEGATIVE); Barbiturate Scree,Urine Neg (NEGATIVE); Benzodiazephine Screen, Urine Neg (NEGATIVE); Cannabinoid Screen, Urine Neg (NEGATIVE); Cocaine Screen, Urine Neg (NEGATIVE); Opiate Scree,Urine Neg (NEGATIVE); Phencyclidine Screen, Urine Neg (NEGATIVE)
[2024-09-08 23:07] LABS: Chlamydia Trachomatis, NAA Negative (Negative); Neisseria gonorrhoeae, NAA Negative (Negative)
== END | disposition home or self-care (01) ==
LOC: LAB 12:38
PROVIDERS: ATTEND Obstetrics & Gynecology
DX: Z34.80 Encounter for supervision of other normal pregnancy, unspecified trimester (principal); Z72.51 High risk heterosexual behavior; Z3A.00 Weeks of gestation of pregnancy not specified
CPT/HCPCS: 36415; 80307; 83036; 84144; 84702; 85025; 86703; 86762; 86780; 86850; 86900; 86901; 87086; 87340

== ENCOUNTER 2024-12-31 14:48 | Emergency (ER) | payer MEDICAID, OTHER ==
[~2024-12-31] VITALS: Ht 154.9 cm; Wt 92.7 kg
[2024-12-31 14:55] VITALS: BP 122/70; PULSE 84; RESP 16; TEMP 98; O2SAT 98
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
== END 2024-12-31 16:06 | disposition home or self-care (01) ==
LOC: ER 14:54
DX: O9A.213 Injury, poisoning and certain other consequences of external causes complicating pregnancy, third trimester (principal); S39.012A Strain of muscle, fascia and tendon of lower back, initial encounter; Z3A.28 28 weeks gestation of pregnancy; V49.88XA Car occupant (driver) (passenger) injured in other specified transport accidents, initial encounter; Y93.I9 Activity, other involving external motion; Y92.488 Other paved roadways as the place of occurrence of the external cause; Y99.8 Other external cause status
CPT/HCPCS: 76805

== ENCOUNTER 2025-01-10 08:52 | Outpatient (CLI) | payer MEDICAID ==
[2025-01-10 10:30] LABS: Alanine Aminotransferase 12 U/L (7-40); Albumin 3.8 g/dL (3.2-4.8); Alkaline Phosphatase 70 U/L (46-116); Anion Gap 10 (5-15); BUN/Creatinine Ratio 9.3 (10.0-20.0); Bilirubin, Total 0.3 mg/dL (0.2-1.0); Carbon Dioxide 24 mmol/L (20-31); Chloride 105 mmol/L (98-107); Glucose 92 mg/dL (74-106); Potassium 3.7 mmol/L (3.5-5.1); Sodium 139 mmol/L (136-145); Total Protein 5.9 g/dL (5.7-8.2)
[2025-01-10 11:24] LABS: Hematocrit 37.2 % (36.0-46.0); Hemoglobin 13.0 g/dL (12.2-16.2); Mean Corpuscular Hemoglobin 32.6 pg (28.0-32.0); Mean Corpuscular Volume 93.5 fL (80.0-100.0); Nucleated Red Blood Cells % 0.0 %
[2025-01-10 11:33] LABS: Blood Urea Nitrogen 5 mg/dL (9-23); Calcium 8.6 mg/dL (8.7-10.4)
[2025-01-11 13:07] LABS: Chlamydia Trachomatis, NAA Negative (Negative); Neisseria gonorrhoeae, NAA Negative (Negative)
== END 2025-01-10 17:00 | disposition home or self-care (01) ==
LOC: LAB 08:52
PROVIDERS: ATTEND Obstetrics & Gynecology
DX: Z34.93 Encounter for supervision of normal pregnancy, unspecified, third trimester (principal); Z3A.29 29 weeks gestation of pregnancy; Z79.899 Other long term (current) drug therapy
CPT/HCPCS: 36415; 80053; 82951; 83036; 85025; 86780; 86850; 86900; 86901

== ENCOUNTER 2025-01-27 06:34 | Observation (INO) | payer MEDICAID ==
--- NOTE | 2025-01-27 13:20 | DVH ---
BIOPHYSICAL PROFILE HISTORY: GDMA1 Comparison Study: US OB ULTRASOUND COMP GTR 14 WKS on DOS: 12/31/24, US OB ULTRASOUND COMP LESS 14WKS on DOS: 07/21/24, US BIOPHYSICAL PROFILE on DOS: 12/16/22, OB ULTRASOUND COMP GTR 14 WKS on DOS: 3 TECHNIQUE: Multiple real-time grayscale sonographic images through the gravid uterus of the fetus wi th duplex Doppler color flow and M-mode spectral analysis FINDINGS: BIOPHYSICAL PROFILE: breathing score: 2 movement score: 2 tone score: 2 Quantitative МАРИЯ score: 2 (МАРИЯ: 13.8 Cm.) Total score: 8 The cervix is closed and measures 3.4 cm Single live fetus in cephalic presentation. heart rate 124 beats per minute. Grade 1, anterior placenta without previa or abruption IMPRESSION: Biophysical profile score: 8
--- NOTE | 2025-01-27 14:04 | DVHDS2 ---
Physician Discharge Progress N Final Diagnosis: 32wks gdm Operations or Procedures: Operations or Procedures nst reactive reviwed,sono Condition on Discharge: Good Disposition: Home Discharge Instructions: Diet: Regular Activity: No Restrictions, As Tolerated Medications: na Follow Up Care: Specialist: 3d Discharge Statement: "Patient was advised to return to the ER or call 911 if any headaches, dizziness, shortness of breath, chest pain, abdominal pain, bleeding, fevers, or worsening of medical condition. Patient was counseled about treatment plan, medications, possible side effects, patientverbalized understanding. All questions were answered to the best of my ability. This discharge took greater then 30 minutes in planning, reviewing documentat ion, counseling the patient, and discussing with other team members." Visit Coding OBGYN Date of Service: Jan 27, 2025 Billing Provider: ZHEN LAND DO SUPERVISOR AREA Common Visit Codes: 24093-JFNPNHB OBS CARE (HIGH) SUPERVISOR AREA Procedure Codes: 10663-97- NON-STRESS TEST ZHEN LAND DO Jan 27, 2025 14:04
== END 2025-01-27 13:29 | disposition home or self-care (01) ==
LOC: LDRP 12:03
PROVIDERS: ADMIT Obstetrics & Gynecology; ATTEND Obstetrics & Gynecology
DX: O24.419 Gestational diabetes mellitus in pregnancy, unspecified control (principal); Z3A.32 32 weeks gestation of pregnancy; Z79.899 Other long term (current) drug therapy
CPT/HCPCS: 59025; 76817; 76819; 81002; 82948; 82962; G0378

== ENCOUNTER 2025-02-04 09:02 | Observation (INO) | payer MEDICAID ==
--- NOTE | 2025-02-04 10:05 | DVH ---
BIOPHYSICAL PROFILE HISTORY: GDMA1 TECHNIQUE: Multiple transabdominal real-time grayscale sonographic images through the gravid uterus o f the fetus with duplex doppler color flow and M-mode spectral analysis FINDINGS: BIOPHYSICAL PROFILE: breathing score: 2 movement score: 2 tone score: 2 Quantitative МАРИЯ score: 2 (МАРИЯ: 12.7 cm.) Total score: 8/8 Single live fetus in cephalic presentation. heart rate 136 beats per minute. Anterior placenta without previa or abruption Biophysical profile score 8/8 corresponding to an FAVIAN of 03/21/25 IMPRESSION: Biophysical profile score: 8/8
--- NOTE | 2025-02-05 08:28 | DVHDS2 ---
Physician Discharge Progress N Final Diagnosis: IUP @ 33.4wks and stable gdm Operations or Procedures: Operations or Procedures nst reactive reviwed,sono Condition on Discharge: Good Disposition: Home Discharge Instructions: Diet: Regular, Consistent carbohydrate Activity: Light activity Medications: na Follow Up Care: Specialist: 4d Discharge Statement: "Patient was advised to return to the ER or call 911 if any headaches, dizziness, shortness of breath, chest pain, abdominal pain, bleeding, fevers, or worsening of medical condition. Patient was counseled about treatment plan, medications, possible side effects, patientverbalized understanding. All questions were answered to the best of my ability. This discharge took greater then 30 minutes in planning, reviewing documentation, counseling the patient, and discussing with other team members." Visit Coding OBGYN Date of Service: Feb 04, 2025 Billing Provider: ZHEN LAND DO UTILITY GELATIN MAKER Common Visit Codes: 12230-BAGJELE OBS CARE (HIGH) UTILITY GELATIN MAKER Procedure Codes: 56598-91- NON-STRESS TEST ZHEN LAND DO Feb 05, 2025 08:28
== END 2025-02-04 11:49 | disposition home or self-care (01) ==
LOC: LDRP 09:02
PROVIDERS: ADMIT Obstetrics & Gynecology; ATTEND Obstetrics & Gynecology
DX: O24.419 Gestational diabetes mellitus in pregnancy, unspecified control (principal); Z3A.33 33 weeks gestation of pregnancy; Z98.890 Other specified postprocedural states
CPT/HCPCS: 59025; 76819; 81002; 82962; 94760; G0378

== ENCOUNTER 2025-02-08 06:35 | Observation (INO) | payer MEDICAID ==
--- NOTE | 2025-02-08 12:48 | DVH ---
BIOPHYSICAL PROFILE HISTORY: GDMA1 TECHNIQUE: Multiple transabdominal real-time grayscale sonographic images through the gravid uterus of the fetus with duplex Doppler color flow and M-mode spectral analysis FINDINGS: BIOPHYSICAL PROFILE: breathing score: 2 movement score: 2 tone score: 2 Quantitative МАРИЯ score: 2 (МАРИЯ: 12.9 Cm.) Total score: 8 The cervix not well visualized. Single live fetus in cephalic presentation. heart rate 140 beats per minute. Anterior placenta without previa or abruption IMPRESSION: Biophysical profile score: 8
--- NOTE | 2025-02-08 13:01 | DVHDS2 ---
Physician Discharge Progress N Final Diagnosis: gdm 34wks Operations or Procedures: Operations or Procedures nst reactive reviwed,sono Condition on Discharge: Good Disposition: Home Discharge Instructions: Diet: Consistent carbohydrate Activity: No Restrictions, As Tolerated Medications: na Follow Up Care: Specialist: 1w Discharge Statement: "Patient was advised to return to the ER or call 911 if any headaches, dizziness, shortness of breath, chest pain, abdominal pain, bleeding, fevers, or worsening of medical condition. Patient was counseled about treatment plan, medications, possible side effects, patientverbalized understanding. All questions were answered to the best of my ability. This discharge took greater then 30 minutes in planning, reviewing documentation, counseling the patient, and discussing with other team members." Visit Coding OBGYN Date of Service: Feb 08, 2025 Billing Provider: ZHEN LAND DO AMPOULE SEALER Common Visit Codes: 79232-[id number] OBS CARE (HIGH) AMPOULE SEALER Procedure Codes: 57043-09- NON-STRESS TEST ZHEN LAND DO Feb 08, 2025 13:01
== END 2025-02-08 13:10 | disposition home or self-care (01) ==
LOC: LDRP 11:55 → UNDOADMOB 11:55 → LDRP 12:07 → UNDODISOB 13:10
PROVIDERS: ADMIT Obstetrics & Gynecology; ATTEND Obstetrics & Gynecology
DX: O24.419 Gestational diabetes mellitus in pregnancy, unspecified control (principal); Z3A.34 34 weeks gestation of pregnancy; Z98.890 Other specified postprocedural states
CPT/HCPCS: 59025; 76819; 81002; 82948; 82962; 94760; G0378

== ENCOUNTER 2025-02-15 06:39 | Observation (INO) | payer MEDICAID ==
--- NOTE | 2025-02-15 13:15 | DVH ---
BIOPHYSICAL PROFILE HISTORY: GDMA1 Comparison Study: US BIOPHYSICAL PROFILE on DOS: 02/08/25, US BIOPHYSICAL PROFILE on DOS: 02/04/25, US B IOPHYSICAL PROFILE on DOS: 01/27/25, US OB ULTRASOUND COMP GTR 14 WKS on DOS: 12/31/24, US OB ULTRASOUN D COMP LESS 14WKS on DOS: 07/21/24 TECHNIQUE: Multiple real-time grayscale sonographic images through the gravid uterus of the fetus wi th duplex Doppler color flow and M-mode spectral analysis FINDINGS: BIOPHYSICAL PROFILE: breathing score: 2 movement score: 2 tone score: 2 Quantitative МАРИЯ score: 2 (МАРИЯ: 13.1 Cm.) Total score: 8 The cervix is not visualized Single live fetus in cephalic presentation. heart rate 128 beats per minute. Anterior placenta without previa or abruption IMPRESSION: Biophysical profile score: 8
--- NOTE | 2025-02-16 00:07 | DVHDS2 ---
Physician Discharge Progress N Final Diagnosis: gdm 35wks Operations or Procedures: Operations or Procedures nst reactive reviwed,sono Condition on Discharge: Good Disposition: Home Discharge Instructions: Diet: Consistent carbohydrate Activity: No Restrictions, As Tolerated Follow Up/Referral: as scheduled. Medications: na Follow Up Care: Specialist: 3d Discharge Statement: "Patient was advised to return to the ER or call 911 if any headaches, dizziness, shortness of breath, chest pain, abdominal pain, bleeding, fevers, or worsening of medical condition. Patient was counseled about treatment plan, medications, possible side effects, patientverbalized understanding. All questions were answered to the best of my ability. This discharge took greater then 30 minutes in planning, reviewing documentation, counseling the patient, and discussing with other team members." Visit Coding OBGYN Date of Service: Feb 15, 2025 Billing Provider: ZHEN LAND DO MEDICAL REVIEW COORDINATOR Common Visit Codes: 38713-[id number] INP/OBS CARE (HIGH) MEDICAL REVIEW COORDINATOR Procedure Codes: 64404-01- NON-STRESS TEST ZHEN LAND DO Feb 16, 2025 00:07
== END 2025-02-15 13:15 | disposition home or self-care (01) ==
LOC: LDRP 12:04
PROVIDERS: ADMIT Obstetrics & Gynecology; ATTEND Obstetrics & Gynecology
DX: O24.419 Gestational diabetes mellitus in pregnancy, unspecified control (principal); Z3A.35 35 weeks gestation of pregnancy; Z79.899 Other long term (current) drug therapy
CPT/HCPCS: 59025; 76819; 81002; 82948; 82962; 94760; G0378

== ENCOUNTER 2025-02-18 23:13 | Emergency (ER) | payer MEDICAID ==
[~2025-02-18] VITALS: Ht 157.5 cm; Wt 93.3 kg
--- NOTE | 2025-02-18 23:51 | ED.PDOC ---
History of Present Illness HPI Comments 35 y/o F, that is 36x weeks , presents with c/c right ankle pain and swelling s/p mechanical slip and fall injury. Denies any further injuries or additional acute symptoms at this time. Chief Complaint: Lower Extremity Time Seen by MD: 23:40 Primary Care Provider: HEDY Reviewed Notes: Nurses Notes, Medications, Allergies Allergies: Coded Allergies: NO KNOWN ALLERGIES (Unverified , 06/28/22) Home Meds Active Scripts Acetaminophen (Acetaminophen) 500 Mg Tab, 500 MG PO Q4HP PRN, #30 TAB Prov:ANA LAURA REYNAGA [facility] 10/02/23 Dicyclomine Hcl (BENTYL CAPSULE) 10 Mg Cp, 1 CAP PO Q6HPRN, #20 CAP 0 Refills Prov:ANA LAURA REYNAGA [facility] 10/02/23 Ondansetron Odt 4MG Tab (ZOFRAN PO) 4 Mg Tb, 4 MG PO Q6HP PRN, #20 TAB ODT TAB-DISSOLVE IN MOUTH, THEN SWALLOW Prov:ANA LAURA REYNAGA [facility] 10/02/23 Nitrofurantoin Monohydrate Mac (Macrobid) 100 Mg Cap, 100 MG PO BID for 7 Days, #14 CAP Prov:ANA LAURA REYNAGA [facility] 10/02/23 Ferric Maltol (Accrufer) 30 Mg Cap, 30 MG PO BID for 30 Days, #60 CAP Prov:GIULIANO HENSON [facility] 12/19/22 Docusate Sodium (Colace) 100 Mg Cap, 100 MG PO DAILYP PRN, #30 CAP Prov:GIULIANO HENSON [facility] 12/18/22 Ibuprofen Micronized (MOTRIN TABLET) 600 Mg Tb, 600 MG PO Q6HP PRN for 10 Days, #40 TAB Prov:GIULIANO HENSON [facility] 12/18/22 Acetaminophen (Acetaminophen) 325 Mg Tab, 650 MG PO Q6HP PRN for 10 Days, #80 TAB Prov:GIULIANO HENSON [facility] 12/18/22 Vit W/ Fe Fum-Iron Po (Concept Dha) Cap, 1 CAP PO DAILY, #90 CAP 3 Refills Prov:GIULIANO HENSON [facility] 12/18/22 Reported Medications Hydrocodone-Acetaminophen (Hydrocodone Bitartrate/AC 5-325 mg) 1 Tab Tab, 1 TAB PO Q4HPRN PRN for PAIN SCALE 1 THRU 6, TAB 03/18/24 Sennosides-Docusate Sodium (Stimulant Laxative 8.6-50 mg) 1 Tab Tab, 1 TAB PO DAILY, TAB 03/18/24 Information Source: Patient Mode of Arrival: Ambulatory Past Medical History PAST MEDICAL HISTORY: Denies Surgical History: Denies all surgeries 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 Family History Family History: Reviewed,noncontributory to illness Social History Smoker: Non-Smoker Alcohol: Denies ETOH Use Drugs: Denies Drug Use Lives In: Home All Other Systems: Reviewed and Negative (as per HPI) Physical Exam General Appearance: No Apparent Distress, Obese HEENT: Normal ENT Inspection, Pharynx Normal, TMs Normal Neck: Full Range of Motion, Non-Tender, Normal, Normal Inspection Respiratory: Chest Non-Tender, Lungs Clear, No Accessory Muscle Use, No Res piratory Distress, Normal Breath Sounds Cardiovascular: No Edema, No JVD, No Murmur, No Gallop, Normal Peripheral Pulses, Regular Rate/Rhythm Breast Exam: Deferred Gastrointestinal: No Organomegaly, Non Tender, No Pulsatile Mass, Normal Bowel Sounds, Soft Genitalia: Deferred Pelvic: Deferred Rectal: Deferred Extremities: No calf tenderness, Normal capillary refill, Normal range of motion, No pedal edema, Swelling (right lateral malleolus), Tender (right lateral malleolus), Other (right lateral malleolus swelling, no signs of deformity or bruising) Musculoskeletal : Apperance: Normal Neurologic: Alert, electronic development technician II-XII nml as Tested, No Motor Deficits, Normal Affect, Normal Mood, No Sensory Deficits Cerebellar Function: Normal Reflexes: Normal Skin: Dry, Normal Color, Warm Lymphatic: No Adenopathy Was a procedure done? Was a procedure done?: Yes Sedation Sedation?: No Informed consent obtained: Yes Other Procedure Procedure right ankle stirrup splint Indication sprain Informed consent obtained: Yes Risks, benefits, and alternati: Yes Notes properly place, without neurovascular injuries Differential Dx Considerations may include: fractures, dislocations, sprain, bruising, contusions, among others X-Ray, Labs, Meds, VS Vital Signs Date Time Temp Pulse Resp B/P (MAP) Pulse Ox O2 Delivery O2 Flow Rate FiO2 02/18/25 23:14 98.7 82 18 141/74 99 98.7 Time of 1ST Reevaluation: 00:10 Reevaluation 1ST: Unchanged Patient Education/Counseling: Diagnosis, Treatment, Prognosis, Need For Follow Up Family Education/Counseling: No Family Present Additional Information Previous visits: N/A The following tests were ordered, and results were reviewed by me: N/A Additional Information was gathered from interviewing the following independent historians: N/A I reviewed and agreed with the following test results read by other providers: N/A I discussed treatment and results with medical personnel and: patient SEPSIS Sepsis Screen Date sepsis recognized/suspect: Feb 18, 2025 Time Sepsis recognized/suspect: 2316 Recent Procedure: No On Antibiotic Therapy: No Respiratory Rate >20: No Heart Rate >90: No Temp<36 C (96.8 F) or >38.3 C: No SBP <90 or MAP <65 mmHG: No New Acute Mental Status Change: No Is the patient on CPAP, BIPAP,: No Physician Orders R Ankle 3 View (02/18/25 23:58) Splints (02/19/25 ) Crutches And Crutch Training (02/19/25 01:27) Vital Signs Date Time Temp Pulse Resp B/P (MAP) Pulse Ox O2 Delivery O2 Flow Rate FiO2 02/18/25 23:14 98.7 82 18 141/74 99 98.7 Departure 1 Departure Time of Disposition: 01:29 Impression: Primary Impression: Right ankle sprain Qualified Codes: S93.401A - Sprain of unspecified ligament of right ankle, initial encounter Disposition: HOME / SELF CARE / HOMELESS Condition: Good e-Prescriptions Ibuprofen Micronized (MOTRIN TABLET) 600 Mg Tb 600 MG PO TID PRN, #40 TAB *Black box warning-NSAIDS can increase risk of GA & hypertension, GI irritation, ulceration, bleed, perferation. Do not use post cardiac surgery. Use short duration/lowest effective dose. Prov: KASHIF RIVERA MD 02/19/25 Discharged With: Self Critical Care Note Critical Care Time?: No Stability Stability form required: No Heart Score Heart Score: Heart Score Response (Comments) Value History N/A 0 EKG N/A 0 Age N/A 0 Risk Factors N/A 0 Troponin N/A 0 Total 0 I personally scribed for KASHIF RIVERA MD ([email or web address]) on 02/18/25 at 23:51. Electronically submitted by Balwinder Craft ([email or web address]). I personally scribed for KASHIF RIVERA MD ([email or web address]) on 02/18/25 at 23:57. Electronically submitted by Balwinder Craft ([email or web address]). KASHIF RIVERA MD Feb 18, 2025 23:51
--- NOTE | 2025-02-19 00:38 | DVH ---
CLINICAL INDICATION: injury TECHNIQUE: 3 views XY R ANKLE 3 VIEW Comparison: None FINDINGS: No acute fracture or dislocation. Normal osseous mineralization. No significant degenerative change. No focal soft tissue abnormality IMPRESSION: 1. No acute osseous finding of the right ankle.
[2025-02-19] MEDS ORDERED: IBU600T PO (01:30)
[2025-02-19 02:27] VITALS: BP 121/80; PULSE 79; RESP 17; TEMP 98.8; O2SAT 98
== END 2025-02-19 02:27 | disposition home or self-care (01) ==
LOC: ER 23:13
DX: S93.401A Sprain of unspecified ligament of right ankle, initial encounter (principal); X58.XXXA Exposure to other specified factors, initial encounter; Y93.89 Activity, other specified; Y92.89 Other specified places as the place of occurrence of the external cause; Y99.8 Other external cause status
CPT/HCPCS: 29515; 73610

== ENCOUNTER 2025-02-20 10:36 | Observation (INO) | payer MEDICAID ==
--- NOTE | 2025-02-20 11:23 | DVH ---
BIOPHYSICAL PROFILE HISTORY: gdma2 TECHNIQUE: Multiple transabdominal real-time grayscale sonographic images through the gravid uterus of the fetus with duplex Doppler color flow and M-mode spectral analysis FINDINGS: BIOPHYSICAL PROFILE: breathing score: 2 movement score: 2 tone score: 2 Quantitative МАРИЯ score: 2 (МАРИЯ: 13 Cm.) Total score: 8 The cervix was not seen Single live fetus in cephalic presentation. heart rate 130 beats per minute. Grade II anterior placenta without previa or abruption IMPRESSION: Biophysical profile score: 8/8
--- NOTE | 2025-02-21 06:00 | DVHDS2 ---
Discharge Summary Date of Admission Feb 20, 2025 at 10:36 Date of Discharge: Feb 20, 2025 Admitting Diagnosis GDM A2 Brief Hx & Hospital Course: NST and BPP performed reassuring Consults/Reason for consult none Condition at Discharge: Good Final Diagnosis/Problems List GDMA2 Discharge Disposition: Home Discharge Instruct/Medications Diet: Regular Activity: No Restrictions, As Tolerated Scheduled Dicyclomine Hcl (Bentyl Capsule), 1 CAP PO Q6HPRN Ferric Maltol (Accrufer), 30 MG PO BID Nitrofurantoin Monohydrate Mac (Macrobid), 100 MG PO BID Vit W/ Fe Fum-Iron Po (Concept Dha), 1 CAP PO DAILY Sennosides-Docusate Sodium (Stimulant Laxative 8.6-50 mg), 1 TAB PO DAILY, (Reported) Scheduled PRN Acetaminophen (Acetaminophen), 650 MG PO Q6HP PRN Acetaminophen (Acetaminophen), 500 MG PO Q4HP PRN Docusate Sodium (Colace), 100 MG PO DAILYP PRN Hydrocodone-Acetaminophen (Hydrocodone Bitartrate/AC 5-325 mg), 1 TAB PO Q4HPRN PRN for PAIN SCALE 1 THRU 6, (Reported) Ibuprofen Micronized (Motrin Tablet), 600 MG PO Q6HP PRN Ibuprofen Micronized (Motrin Tablet), 600 MG PO TID PRN Ondansetron Odt 4MG Tab (Zofran Po), 4 MG PO Q6HP PRN Discharge Statement: "Patient was advised to return to the ER or call 911 if any headaches, dizziness, shortness of breath, chest pain, abdominal pain, bleeding, fevers, or worsening of medical condition. Patient was counseled about treatment plan, medications, possible side effects, patientverbalized understanding. All questions were answered to the best of my ability. This discharge took greater then 30 minutes in planning, reviewing d ocumentation, counseling the patient, and discussing with other team members." ASSESSMENT ASSESSMENT Assessment Visit Coding OBGYN Date of Service: Feb 20, 2025 Billing Provider: DANNA CRANE DO SAILMAKER Common Visit Codes: 86884-NLF/OBS SAME DATE (LOW), 95621-AGA/OBS SAME DATE (MOD), 49220-NZU/OBS SAME DATE (HIGH) SAILMAKER Procedure Codes: 53051-63- NON-STRESS TEST DANNA CRANE DO Feb 21, 2025 06:00
== END 2025-02-20 11:40 | disposition home or self-care (01) ==
LOC: LDRP 10:36
PROVIDERS: ADMIT Obstetrics & Gynecology; ATTEND Obstetrics & Gynecology
DX: O24.419 Gestational diabetes mellitus in pregnancy, unspecified control (principal); Z3A.35 35 weeks gestation of pregnancy; Z98.890 Other specified postprocedural states
CPT/HCPCS: 59025; 76819; 81002; 94760; G0378

== ENCOUNTER 2025-02-22 11:32 | Outpatient (CLI) | payer MEDICAID ==
[2025-02-22 11:47] LABS: Hematocrit 37.8 % (36.0-46.0); Hemoglobin 13.2 g/dL (12.2-16.2); Mean Corpuscular Hemoglobin 32.3 pg (28.0-32.0); Mean Corpuscular Volume 92.3 fL (80.0-100.0); Nucleated Red Blood Cells % 0.0 %
[2025-02-23 16:07] LABS: Chlamydia Trachomatis, NAA Negative (Negative); Neisseria gonorrhoeae, NAA Negative (Negative)
== END 2025-02-22 17:00 | disposition home or self-care (01) ==
LOC: LAB 11:32
PROVIDERS: ATTEND Obstetrics & Gynecology
DX: Z34.80 Encounter for supervision of other normal pregnancy, unspecified trimester (principal); Z72.51 High risk heterosexual behavior; Z3A.00 Weeks of gestation of pregnancy not specified
CPT/HCPCS: 36415; 85025; 86780

== ENCOUNTER 2025-02-24 12:53 | Observation (INO) | payer MEDICAID ==
[2025-02-24] MEDS ORDERED: METF-370 PO (13:41)
--- NOTE | 2025-02-24 14:05 | DVH ---
BIOPHYSICAL PROFILE HISTORY: GDMA2 TECHNIQUE: Multiple transabdominal real-time grayscale sonographic images through the gravid uterus of the fetus with duplex Doppler color flow and M-mode spectral analysis FINDINGS: BIOPHYSICAL PROFILE: breathing score: 2 movement score: 2 tone score: 2 Quantitative МАРИЯ score: 2 (МАРИЯ: 14 Cm.) Total score: 8 The cervix not well visualized Single live fetus in cephalic presentation. heart rate 138 beats per minute. Anterior placenta without previa or abruption IMPRESSION: Biophysical profile score: 8
--- NOTE | 2025-02-24 16:23 | DVHDS2 ---
Physician Discharge Progress N Final Diagnosis: GDMA2 Secondary Diagnosis: Encounter for surveillance Operations or Procedures: Operations or Procedures NST/BPP МАРИЯ all WNL Condition on Discharge: Stable Disposition: Home Discharge Instructions: Diet: Consistent carbohydrate Activity: No Restrictions, As Tolerated Follow Up/Referral: as scheduled 2x/wk Medications: NA Follow Up Care: Discharge Statement: "Patient was advised to return to the ER or call 911 if any headaches, dizziness, shortness of breath, chest pain, abdominal pain, bleeding, fevers, or worsening of medical condition. Patient was counseled about treatment plan, medications, possible side effects, patientverbalized understanding. All questions were answered to the best of my ability. This discharge took greater then 30 minutes in planning, reviewing documentation, counseling the patient, and discussing with other team members." Visit Coding OBGYN Date of Service: Feb 24, 2025 Billing Provider: LIZETTE VELAZCO DO COPER HAND Common Visit Codes: 64428-KUE/OBS SAME DATE (HIGH) COPER HAND Procedure Codes: 72069-14- NON-STRESS TEST LIZETTE VELAZCO DO Feb 24, 2025 16:23
== END 2025-02-24 14:16 | disposition home or self-care (01) ==
LOC: LDRP 12:53
PROVIDERS: ADMIT Obstetrics & Gynecology; ATTEND Obstetrics & Gynecology
DX: O24.419 Gestational diabetes mellitus in pregnancy, unspecified control (principal); Z3A.36 36 weeks gestation of pregnancy; Z79.899 Other long term (current) drug therapy; Z98.890 Other specified postprocedural states
CPT/HCPCS: 59025; 76819; 81002; 82948; 82962; 94760; G0378

== ENCOUNTER 2025-02-28 08:58 | Observation (INO) | payer MEDICAID ==
[~2025-02-28 08:58] MED LIST changes: +METF-370 PO
--- NOTE | 2025-02-28 10:11 | DVH ---
BIOPHYSICAL PROFILE HISTORY: GDMA2 Comparison Study: US BIOPHYSICAL PROFILE on DOS: 02/24/25, US BIOPHYSICAL PROFILE on DOS: 02/20/25, US BIOPHYSICAL PROFILE on DOS: 02/15/25, US BIOPHYSICAL PROFILE on DOS: 02/08/25, US BIOPHYSICAL PROFILE on DOS: 02/04/25 TECHNIQUE: Multiple real-time grayscale sonographic images through the gravid uterus of the fetus wi th duplex Doppler color flow and M-mode spectral analysis FINDINGS: BIOPHYSICAL PROFILE: breathing score: 2 movement score: 2 tone score: 2 Quantitative МАРИЯ score: 2 (МАРИЯ: 11.9 Cm.) Total score: 8 The cervix is not visualized Single live fetus in cephalic presentation. heart rate 142 beats per minute. Anterior placenta without previa or abruption IMPRESSION: Biophysical profile score: 8
--- NOTE | 2025-02-28 11:12 | DVHDS2 ---
Physician Discharge Progress N Final Diagnosis: testing for GDMA2 Operations or Procedures: Operations or Procedures S: 35y/o IUP@ 37 weeks GA presents for testing for GDMA2 PNC with Dr. Benjamin O: VSS, See CPN NST reactive UC's -07/18 Sono WNL Bedside blood glucose 87 A: 35y/o IUP @ 37w GA GDMA2 P: Dr. Benjmain consulted, agree with POC to D/C home Follow up in twice weekly Other Interventions Other Interventions [place] [id number] Ph: [phone] DIAGNOSTIC IMAGING Diagnostic Imaging Report : [id number] Signed PATIENT: SAIDA JACKSON ACCT: [id number] UNIT: [id number] : 1990 LOC: [facility] ROOM / BED: [address] AGE / SEX: 35 / F ADM STATUS: ADM IN SERVICE 2 ORDERING PHYSICIAN: GIULIANO HENSON CNM PROCEDURE(s): BPP - BIOPHYSICAL PROFILE REASON: GDMA2 ORDER NUMBER(s): [id number], ACCESSION NUMBER(s): [id number] BIOPHYSICAL PROFILE HISTORY: GDMA2 Comparison Study: US BIOPHYSICAL PROFILE on DOS: 02/24/25, US BIOPHYSICAL PROFILE on DOS: 02/20/25, US BIOPHYSICAL PROFILE on DOS: 02/15/25, US BIOPHYSICAL PROFILE on DOS: 02/08/25, US BIOPHYSICAL PROFILE on DOS: 02/04/25 TECHNIQUE: Multiple real-time grayscale sonographic images through the gravid u terus of the fetus with duplex Doppler color flow and M-mode spectral analysis FINDINGS: BIOPHYSICAL PROFILE: breathing score: 2 movement score: 2 tone score: 2 Quantitative МАРИЯ score: 2 (МАРИЯ: 11.9 Cm.) Total score: 8 The cervix is not visualized Single live fetus in cephalic presentation. heart rate 142 beats per minute. Anterior placenta without previa or abruption IMPRESSION: Biophysical profile score: 8 ATED BY: ALPESH BRODERICK MD DICTATED DATE/TIME: 02/28/25 1009 SIGNED BY: ALPESH BRODERICK MD SIGNED DATE/TIME: 02/28/25 1009 CC: Condition on Discharge: Stable Disposition: Home Discharge Instructions: Diet: Consistent carbohydrate Activity: No Restrictions, As Tolerated Follow Up/Referral: as scheduled Medications: See med list Follow Up Care: Specialist: Follow up twice weekly Discharge Statement: "Patient was advised to return to the ER or call 911 if any headaches, dizziness, shortness of breath, chest pain, abdominal pain, bleeding, fevers, or worsening of medical condition. Patient was counseled about treatment plan, medications, possible side effects, patientverbalized understanding. All questions were answered to the best of my ability. This discharge took greater then 30 minutes in planning, reviewing documentation, counseling the patient, and discussing with other team members." Visit Coding OBGYN Date of Service: Feb 28, 2025 Billing Provider: GIULIANO HENSON CNM BARREL SCRAPER Common Visit Codes: 09063-OZERAIF OBS CARE (HIGH) BARREL SCRAPER Procedure Codes: 33210-45- NON-STRESS TEST GIULIANO HENSON CNM Feb 28, 2025 11:12
== END 2025-02-28 10:51 | disposition home or self-care (01) ==
LOC: LDRP 08:58 → UNDOADMOB 08:58 → LDRP 09:04 → UNDODISOB 10:51
PROVIDERS: ADMIT Obstetrics & Gynecology; ATTEND Obstetrics & Gynecology
DX: O24.419 Gestational diabetes mellitus in pregnancy, unspecified control (principal); Z3A.37 37 weeks gestation of pregnancy; Z98.890 Other specified postprocedural states
CPT/HCPCS: 59025; 76819; 81002; 82948; 82962; 94760; G0378

== ENCOUNTER 2025-03-02 18:19 | Observation (INO) | payer MEDICAID ==
--- NOTE | 2025-03-02 20:36 | DVH ---
EXAM: US BIOPHYSICAL PROFILE HISTORY: GDMA2 COMPARISON: US BIOPHYSICAL PROFILE on DOS: 02/28/25 TECHNIQUE: Transabdominal real time hitchcock scale, color, and doppler evaluation. Permanent images are maintained in the patient record. FINDINGS: Normal biophysical profile score. Cephalic presentation. Anterior placenta location. heart ra te 124 beats per minute. Amniotic fluid index 11.1 cm. Normal. IMPRESSION: 1. Normal biophysical profile score.
--- NOTE | 2025-03-02 22:16 | DVHDS2 ---
Physician Discharge Progress N Final Diagnosis: IUP at 37w2d. Not in labor Operations or Procedures: Operations or Procedures SUBJECTIVE Audrey Coronado is a 35 yo with IUP at 37w2d presenting for pelvic pain and dizziness Patient states that she spent all day cleaning and nesting. She began feeling dizzy after she cleaned her stovetop. 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 Did not wear a mask while cleaning and did not have vent on. Feels occasional contractions, denies leaking fluid, denies vaginal bleeding, and states positive movement. Patient also has been feeling more pelvic pressure over the last few days. Since she got here, the dizziness resolved and she feels more comfortable. Is wondering if she can do her BPP now, instead of tomorrow. Review of Systems: Neuro: No complaints Heart: No complaints Lungs: No complaints GI: No complaints : Pelvic aching and pressure Skin: No complaints Extremities: No complaints OBJECTIVE VSS FHR: Baseline: 115 Variability: Moderate Accelerations: Present Decelerations: Absent Category: 1 UCs: occasional Neuro: A&O x4. No apparent distress. Affect appropriate Heart: Regular rate and rhythm Lungs: Clear bilaterally GI: Gravid. No tenderness : SVE discussed and performed by monorail charger operator with consent. fingertip Skin: Dry and intact. No rashes or lesions Extremities: Cap refill WNL. BPP: 8/8 МАРИЯ: 11.1 ASSESSMENT 35 yo with IUP at 37w2d Not in labor Category 1 Tracing PLAN -Discussed physiologic changes in lung capacity in and importance of rest and hydration. Encouraged patient to clean in well ventilated spaces and take breaks when needed -Encouraged patient to get maternity belt to help support her pelvic organs. -Continue with appointments as scheduled. NST on Tuesday 03/06 -Discussed labor precautions and kick counts. Answered all patient questions and concerns. Patient verbalizes understanding. Other Interventions Other Interventions EXAM: US BIOPHYSICAL PROFILE ORDERING PHYSICIAN: EMMANUEL VELEZ CNM PROCEDURE(s): BPP - BIOPHYSICAL PROFILE REASON: GDMA2 ORDER NUMBER(s): [id number], ACCESSION NUMBER(s): [id number] HISTORY: GDMA2 COMPARISON: US BIOPHYSICAL PROFILE on DOS: 02/28/25 TECHNIQUE: Transabdominal real time hitchcock scale, color, and doppler evaluation. Permanent images are maintained in the patient record. FINDINGS: Normal biophysical profile score. Cephalic presentation. Anterior placenta location. heart rate 124 beats per minute. Amniotic fluid index 11.1 cm. Normal. IMPRESSION: 1. Normal biophysical profile score. Condition on Discharge: Good Disposition: Home Discharge Instructions: Diet: See Comment Diet comment: LOW CARB LOW SUGAR Activity: Light activity Follow Up/Referral: RETURN TO [facility] FOR ULTRASOUND AND MONITORING 03/06/25 AT 3PM. Medications: CONTINUE TAKING ALL CURRENT MEDICATIONS PREVIOUSLY PRESCRIBED BY LEONARDO DEJESUS AND DR LAND. Follow Up Care: Discharge Statement: "Patient was advised to return to the ER or call 911 if any headaches, dizziness, shortness of breath, chest pain, abdominal pain, bleeding, fevers, or worsening of medical condition. Patient was counseled about treatment plan, medications, possible side effects, patientverbalized understanding. All questions were answered to the best of my ability. This discharge took greater then 30 minutes in planning, reviewing documentation, counseling the patient, and discussing with other team members." Visit Coding OBGYN Date of Service: Mar 02, 2025 Billing Provider: EMMANUEL VELEZ CNM BRINE PURIFIER Common Visit Codes: [id number] INP/OBS CARE (HIGH) BRINE PURIFIER Procedure Codes: 38467-78- NON-STRESS TEST EMMANUEL VELEZ CNM Mar 02, 2025 22:16
== END 2025-03-02 20:54 | disposition home or self-care (01) ==
LOC: LDRP 18:19
PROVIDERS: ADMIT Obstetrics & Gynecology; ATTEND Obstetrics & Gynecology
DX: O24.419 Gestational diabetes mellitus in pregnancy, unspecified control (principal); O26.893 Other specified pregnancy related conditions, third trimester; R42 Dizziness and giddiness; R10.2 Pelvic and perineal pain; Z3A.37 37 weeks gestation of pregnancy; Z98.890 Other specified postprocedural states
CPT/HCPCS: 59025; 76819; 81002; 82962; 94760; G0378

== ENCOUNTER 2025-03-06 15:15 | Observation (INO) | payer MEDICAID ==
--- NOTE | 2025-03-06 16:02 | DVH ---
BIOPHYSICAL PROFILE HISTORY: GDMA2 Comparison Study: US BIOPHYSICAL PROFILE on DOS: 03/02/25, US BIOPHYSICAL PROFILE on DOS: 02/28/25, US BIOPHYSICAL PROFILE on DOS: 02/24/25, US BIOPHYSICAL PROFILE on DOS: 02/20/25, US BIOPHYSICAL PROFILE o n DOS: 02/15/25 TECHNIQUE: Multiple real-time grayscale sonographic images through the gravid uterus of the fetus wi th duplex Doppler color flow and M-mode spectral analysis FINDINGS: BIOPHYSICAL PROFILE: breathing score: 2 movement score: 2 tone score: 2 Quantitative МАРИЯ score: 2 (МАРИЯ: 9.1 Cm.) Total score: 8 The cervix is not visualized Single live fetus in cephalic presentation. heart rate 140 beats per minute. Anterior placenta without previa or abruption IMPRESSION: Biophysical profile score: 8
== END 2025-03-06 16:49 | disposition home or self-care (01) ==
LOC: LDRP 15:15
PROVIDERS: ADMIT Obstetrics & Gynecology; ATTEND Obstetrics & Gynecology
DX: O24.419 Gestational diabetes mellitus in pregnancy, unspecified control (principal); Z3A.37 37 weeks gestation of pregnancy; Z98.890 Other specified postprocedural states
CPT/HCPCS: 59025; 76819; 81002; 82948; 82962; 94760; G0378

== ENCOUNTER 2025-03-09 00:37 | Inpatient (IN) | payer MEDICAID ==
[~2025-03-09] VITALS: Ht 162.6 cm; Wt 92.5 kg
[2025-03-14] MEDS ORDERED: BUTORPHANOL TARTRATE 2 MG/1 ML VIAL IV PRN ×2 (07:15)
[2025-03-14] MEDS ORDERED: LIDOCAINE 2%HCL (LOCAL ANESTH.) INJ 20ML MDV IJ PRN (07:15)
[2025-03-14 07:54] LABS: Hematocrit 40.1 % (36.0-46.0); Hemoglobin 13.9 g/dL (12.2-16.2); Mean Corpuscular Hemoglobin 32.2 pg (28.0-32.0); Mean Corpuscular Volume 92.6 fL (80.0-100.0); Nucleated Red Blood Cells % 0.1 %
[2025-03-14 07:56] LABS: Urine Protein, UAD Negative (Negative)
[2025-03-14] MEDS: PHISODERM TOP SOLN 240ML BTL TOP PRN (08:04)
[2025-03-14] MEDS: WITCH HAZEL-GLYCERIN PAD TOP PRN (08:04)
[2025-03-14] MEDS: DERMOPLAST 60ML BOTTLE TOP PRN (08:04)
[2025-03-14] MEDS: LACTATED RINGER'S 1,000 ML IV SCH (08:04)
--- NOTE | 2025-03-14 08:04 | DVHHP2 ---
OB CC & HPI Date Date of Admission: Mar 14, 2025 Patient Identification: : 4 Para: 3 EDC: Mar 21, 2025 EGA: 39.0 Chief Complaints: Reason for admission: induction of labor Indication for induction: other (GDMA2) History of Present Complaints 35y/o IUP@39.0wks presents for scheduled IOL for GDMA2 Denies UCs/LOF/VB/VIVAS/vision changes/RUQ pain. Endorses +FM. PNC: Routine PNC at [facility] OB, adequate visits, PNC complicated by GDMA2, AMA. Dating based on 9wk sono, GBS positive. OB hx: x3, uncomplicated x2. Patient reports PPH x 1 with last delivery. Past Medical History Cardiac: No pertinent Hx Pulmonary: No pertinent Hx Central Nervous System: No pertinent Hx GI: No pertinent Hx Hemotology/Oncology: No pertinent Hx Hepatobiliary: No pertinent Hx Psychiatric: Anxiety Musculoskeletal: No pertinent Hx Rheumotologic: No pertinent Hx Infectious Disease: No peritnent Hx ENT: No pertinent Hx Renal/: No pertinent Hx Endocrine: No pertinent Hx Dermatology: No pertinent Hx Past Surgical History: Other (Gallbladder removal 2023, with ERCP after.) OB History OB History Care: Good Care Ultrasounds: Normal mid trimester US Obstetrical Complications: Gestational Diabetes Medical Complications: None Allergies: Coded Allergies: NO KNOWN ALLERGIES (Unverified , 06/28/22) Home Meds Active Scripts Ibuprofen Micronized (MOTRIN TABLET) 600 Mg Tb, 600 MG PO TID PRN, #40 TAB *Black box warning-NSAIDS can increase risk of MT & hypertension, GI irritation, ulceration, bleed, perferation. Do not use post cardiac surgery. Use short duration/lowest effective dose. Prov:KASHIF RIVERA MD 02/19/25 Acetaminophen (Acetaminophen) 500 Mg Tab, 500 MG PO Q4HP PRN, #30 TAB Prov:ANA LAURA REYNAGA PAC 10/02/23 Dicyclomine Hcl (BENTYL CAPSULE) 10 Mg Cp, 1 CAP PO Q6HPRN, #20 CAP 0 Refills Prov:ANA LAURA REYNAGA PAC 10/02/23 Ondansetron Odt 4MG Tab (ZOFRAN PO) 4 Mg Tb, 4 MG PO Q6HP PRN, #20 TAB ODT TAB-DISSOLVE IN MOUTH, THEN SWALLOW Prov:ANA LAURA REYNAGA PAC 10/02/23 Nitrofurantoin Monohydrate Mac (Macrobid) 100 Mg Cap, 100 MG PO BID for 7 Days, #14 CAP Prov:ANA LAURA REYNAGA PAC 10/02/23 Ferric Maltol (Accrufer) 30 Mg Cap, 30 MG PO BID for 30 Days, #60 CAP Prov:GIULIANO HENSON [facility] 12/19/22 Docusate Sodium (Colace) 100 Mg Cap, 100 MG PO DAILYP PRN, #30 CAP [facility] 12/18/22 Ibuprofen Micronized (MOTRIN TABLET) 600 Mg Tb, 600 MG PO Q6HP PRN for 10 Days, #40 TAB [facility] 12/18/22 Acetaminophen (Acetaminophen) 325 Mg Tab, 650 MG PO Q6HP PRN for 10 Days, #80 TAB [facility] 12/18/22 Vit W/ Fe Fum-Iron Po (Concept Dha) Cap, 1 CAP PO DAILY, #90 CAP 3 Refills Prov:GIULIANO HENSON [facility] 12/18/22 Reported Medications Metformin Hydrochloride (Metformin Hcl) 500 Mg Tab, 500 MG PO HS, TAB 02/24/25 Hydrocodone-Acetaminophen (Hydrocodone Bitartrate/AC 5-325 mg) 1 Tab Tab, 1 TAB PO Q4HPRN PRN for PAIN SCALE 1 THRU 6, TAB 03/18/24 Sennosides-Docusate Sodium (Stimulant Laxative 8.6-50 mg) 1 Tab Tab, 1 TAB PO DAILY, TAB 03/18/24 Current Medications Current Medications Medications (Trade) Dose Ordered Sig/Npaoleon Route PRN Reason Start Time Stop Time Status Last Admin Lactated Ringer's 1,000 ml @ 125 mls/hr Q8H IV 03/14/25 07:15 Penicillin G Potassium 9131067 units/Dextrose 50 ml @ 100 mls/hr Q4H IV 03/14/25 11:15 Witch Aury (Tucks) 1 pad PRN PRN TOP PERINEAL AREA DISCOMFORT 03/14/25 07:15 Sodium Lauryl Sulfate (Phisoderm) 240 ml PRN PRN TOP PERINEAL AREA DISCOMFORT 03/14/25 07:15 Benzocaine (Dermoplast) 1 applic PRN PRN TOP PERINEAL AREA DISCOMFORT 03/14/25 07:15 Butorphanol Tartrate (Stadol Injection) 1 mg Q4HPRN PRN IV MODERATE PAIN (4-6 PAIN SCALE) 03/14/25 07:15 Butorphanol Tartrate (Stadol Injection) 2 mg Q4HPRN PRN IV SEVERE PAIN (7-10 PAIN SCALE) 03/14/25 07:15 Misoprostol (Cytotec) 50 mcg Q4HPRN PRN PO CERVICAL RIPENING 03/14/25 07:15 Lidocaine HCl (Xylocaine) 20 ml ONCE PRN IJ PERINEAL AREA DISCOMFORT 03/14/25 07:15 Family & Social History Family/Social History Past Family/Social History: Denies Blood Type: O+ Rubella: immune RPR/VDRL: Negative GBS Status: Positive HBsAG: Negative Review of Systems Constitutional: No symptom reported Ears, Nose, & Throat: No symptom reported Eyes: No symptom reported Pulmonary/Respiratory: No symptom reported Cardiovascular: No symptom reported Gastrointestinal: No symptom reported Genitourinary: No symptom reported Musculoskeletal: No symptom reported Skin: No symptom reported Psychiatric: No symptom reported Endocrine: No symptom reported Hemotologic/Lymphatic: No symptom reported OB Admission Exam Physical Exam Vitals: O: EFW - 7lbs 2oz in clinic one week ago SVE - 50/-3, vertex, intact VSS - See CPN HEENT: TMs Normal, Fontanelles Normal, Nasal Mucosa Normal, Eyes non-injected, Oropharynx Normal, PERRLA, Moist Membranes, EOMI Heart: Rhythm Normal Lungs: Clear Abdomen: Gravid Extremities: Normal Reflexes: Normal Pelvic Exam: /-3 Membranes: Intact Heart Rate: 140's Accelerations: Accelerations Present Decelerations: No Decelerations Network Operations Manager Variability: Average (6-25) Contractions on Admission: None OB Plan Plan Admitting Diagnosis: induction for GDMA2 Plan: Induction Induction Methd: Pitocin protocol Other Plan: A: 35yo IUP@39.0wks Induction of Labor for GDMA2 AMA Anxiety Category I EFM Intact Membranes GBS positive P: Admit to L&D Informed consent obtained Discussed plan of care with patient to start IOL with Pitocin per protocol, Patient agrees with POC. monitoring per order Routine labs ordered Pain mgmt PRN Antibiotic coverage for GBS treatment Accucheck Q4h now, Q2h in active labor Frequent position changes in and out of bed encouraged Limit SVE unless necessary Intrauterine resuscitation PRN Anticipate Visit Coding OBGYN Date of Service: Mar 14, 2025 Billing Provider: GIULIANO HENSON CNM ORGANIZATIONAL DEVELOPMENT SPECIALIST Common Visit Codes: [id number] INP/OBS CARE (HIGH) ORGANIZATIONAL DEVELOPMENT SPECIALIST Procedure Codes: 13084-54- NON-STRESS TEST GIULIANO HENSON CNM Mar 14, 2025 08:04
[2025-03-14] MEDS: PENICILLIN G POT 5MIL/D5 50ML 50 ML IV ONE (08:06)
[2025-03-14 08:11] LABS: Amphetamine Screen, Urine Neg (NEGATIVE); Barbiturate Scree,Urine Neg (NEGATIVE); Benzodiazephine Screen, Urine Neg (NEGATIVE); Cocaine Screen, Urine Neg (NEGATIVE); Opiate Scree,Urine Neg (NEGATIVE)
[2025-03-14 08:12] LABS: Cannabinoid Screen, Urine Neg (NEGATIVE); Phencyclidine Screen, Urine Neg (NEGATIVE)
[2025-03-14 08:15] LABS: Albumin 4.1 g/dL (3.2-4.8); Anion Gap 12 (5-15); BUN/Creatinine Ratio 11.3 (10.0-20.0); Bilirubin, Total 0.4 mg/dL (0.2-1.0); Calcium 9.3 mg/dL (8.7-10.4); Carbon Dioxide 24 mmol/L (20-31); Chloride 103 mmol/L (98-107); Glucose 90 mg/dL (74-106); Potassium 3.6 mmol/L (3.5-5.1); Sodium 139 mmol/L (136-145); Total Protein 6.9 g/dL (5.7-8.2)
[2025-03-14 08:16] LABS: Alanine Aminotransferase < 9 U/L (7-40); Alkaline Phosphatase 132 U/L (46-116); Blood Urea Nitrogen 7 mg/dL (9-23); INR 0.94 (0.9-1.15); Partial Thromboplastin Time 29.4 SEC (24.5-34.5); Prothrombin Time 10.0 sec (9.3-11.8)
[2025-03-14] MEDS: NALOXONE HCL 0.4 MG/ML VIAL IV ONE (09:00)
[2025-03-14] MEDS: FAMOTIDINE (10MG/ML) 2ML VL IV SCH (09:08)
[2025-03-14] MEDS ORDERED: TERBUTALINE SULFATE 1 MG/ML 1ML VIAL SC PRN ×2 (09:15→20:45)
[2025-03-14] MEDS: LACT. RINGERS/OXYTOCIN 20UNITS 1,000 ML IV SCH (11:00)
[2025-03-14] MEDS ORDERED: PENICILLIN G POTASSIUM 2,500,000 UNITS in D5W 5% 50 ML IV SCH (11:15)
[2025-03-14] MEDS: PENICILLIN G POTASSIUM 2,500,000 UNITS in D5W 5% 50 ML IV SCH (12:25)
[2025-03-14] MEDS: ROPIVACAINE HCL 100 ML ONE (12:29)
--- NOTE | 2025-03-14 15:15 | DVHPN2 ---
CNM Labor Progress Note Date and Time Seen Date Seen: Mar 14, 2025 Time Seen: 14:59 Subjective Subjective Comment Patient comfortable with epidural, reports working well. After discussion, patients agrees with AROM. Objective Vital Signs VSS- See CPN Monitoring Method Monitoring Method: External Heart Rate Heart Rate Baseline: 160 Heart Rate Variability: Moderate Presence of FHR Accelerations: Yes Presence of FHR Decelerations: No Contractions Contractions Frequency: Other (2-3min) Duration of Contraction: 80 Contractions Intensity: Moderate Contractions Resting Tone: Relaxed Membranes Membranes: Ruptured (THELMA) Amniotic Fluid Color: Clear Vaginal Exam Vag Exam Deferred: No Vaginal Exam Dilation: 5 Vaginal Exam Effacement: 70 Vaginal Exam Station: -1 Vaginal Exam Presentation: VTX Vaginal Exam Show: Small Medications Medications - Pitocin: Yes (16mu/min) Medication - Epidural: Yes Lab Results Lab Results Vital Signs Date Time Temp Pulse Resp B/P (MAP) Pulse Ox O2 Delivery O2 Flow Rate FiO2 03/14/25 18:30 98.8 101 16 113/57 (75) 100 98.8 03/14/25 18:30 Room Air Current Medications Medications (Trade) Dose Ordered Sig/Napoleon Start Time Stop Time Status Last Admin Dose Admin Lactated Ringer's 1,000 ml @ 125 mls/hr Q8H 03/14/25 07:15 03/14/25 16:46 DC 03/14/25 08:04 125 MLS/HR Penicillin G Potassium 50 ml @ 100 mls/hr ONCE ONCE 03/14/25 07:15 03/14/25 07:44 DC 03/14/25 08:06 100 MLS/HR Penicillin G Potassium 0749493 units/Dextrose 50 ml @ 100 mls/hr Q4H 03/14/25 11:15 03/14/25 11:49 DC Maris Jeffers (Tucks) 1 pad PRN PRN 03/14/25 07:15 03/14/25 08:04 1 PAD Sodium Lauryl Sulfate (Phisoderm) 240 ml PRN PRN 03/14/25 07:15 03/14/25 08:04 240 ML Benzocaine (Dermoplast) 1 applic PRN PRN 03/14/25 07:15 03/14/25 08:04 1 APPLIC Lidocaine HCl (Xylocaine) 20 ml ONCE PRN 03/14/25 07:15 03/14/25 16:46 DC Oxytocin 500 ml @ 999 mls/hr Q31M ONCE 03/14/25 07:15 03/14/25 07:45 DC 03/14/25 17:31 999 MLS/HR Oxytocin 500 ml @ 125 mls/hr Q4H ONCE 03/14/25 07:45 03/14/25 11:44 DC 03/14/25 17:32 125 MLS/HR Famotidine (Pepcid Injection) 20 mg Q12H 03/14/25 08:45 03/14/25 09:08 20 MG Naloxone HCl (Narcan) 0.2 mg PRN ONCE 03/14/25 09:00 03/14/25 09:01 DC Ephedrine Sulfate (ePHEDrine SULFATE) 10 mg PRN ONCE 03/14/25 09:00 03/14/25 09:01 DC 03/14/25 09:52 10 MG Oxytocin 1,000 ml @ 6 ml/hr Q24H 03/14/25 09:15 03/14/25 16:46 DC 03/14/25 11:00 6 ML/HR Terbutaline Sulfate (Brethine Inj) 0.25 mg ONCE PRN 03/14/25 09:15 03/14/25 16:46 DC Penicillin G Potassium 0128309 units/Dextrose 50 ml @ 100 mls/hr Q4H 03/14/25 12:00 03/14/25 16:46 DC 03/14/25 12:25 100 MLS/HR Ibuprofen (Motrin Tablet) 600 mg Q6HP PRN 03/14/25 16:45 Acetaminophen (Tylenol Tablet) 650 mg Q6HPRN PRN 03/14/25 16:45 Prenat Multivit/ [place]/Iron/Folic Ac (Prenavite Tablet) 1 DAILY 03/15/25 10:00 Laboratory Tests Test 03/14/25 11:12 03/14/25 07:26 Range/Units POC Glucose 101 70-106 mg/dl White Blood Count 10.3 4.4-10.8 10^3/uL Red Blood Count 4.33 4.0-5.20 10^6/uL Hemoglobin 13.9 12.2-16.2 g/dL Hematocrit 40.1 36.0-46.0 % Mean Corpuscular Volume 92.6 80.0-100.0 fL Mean Corpuscular Hemoglobin 32.2 H 28.0-32.0 pg Mean Corpuscular Hemoglobin Concent 34.8 32.0-36.0 g/dL Red Cell Distribution Width 13.7 11.8-14.3 % Platelet Count 225 140-450 10^3/uL Mean Platelet Volume 8.1 6.9-10.8 fL Neutrophils (%) (Auto) 72.9 37.0-80.0 % Lymphocytes (%) (Auto) 18.7 10.0-50.0 % Monocytes (%) (Auto) 7.2 0.0-12.0 % Eosinophils (%) (Auto) 0.8 0.0-7.0 % Basophils (%) (Auto) 0.4 0.0-2.0 % Neutrophils # (Auto) 7.5 1.6-8.6 10 ^3/uL Lymphocytes # (Auto) 1.9 0.4-5.4 10 ^3/uL Monocytes # (Auto) 0.7 0-1.3 10 ^3/uL Eosinophils # (Auto) 0.1 0-0.8 10 ^3/uL Basophils # (Auto) 0 0-0.2 10 ^3/uL Nucleated Red Blood Cells 0.1 % Prothrombin Time 10.0 9.3-11.8 sec Prothrombin Time INR 0.94 0.9-1.15 Activated Partial Thromboplast Time 29.4 24.5-34.5 SEC Urine Color Light-yellow Yellow Urine Clarity Clear Clear Urine pH 6.5 5.0-9.0 Urine Specific [place] 1.015 1.001-1.035 Urine Protein Negative Negative Urine Ketones 1+ H Negative Urine Blood Negative Negative /uL Urine Nitrite Negative Negative Urine Bilirubin Negative Negative Urine Urobilinogen Normal Negative mg/dL Urine Leukocyte Esterase Negative Negative /uL Urine RBC <1 0 - 4 /hpf Urine Microscopic WBC 2 0-5 /HPF Urine Squamous Epithelial Cells Few <5 /hpf Urine Bacteria None seen None Seen /hpf Urine Glucose Normal Normal mg/dL Sodium Level 139 136-145 mmol/L Potassium Level 3.6 3.5-5.1 mmol/L Chloride Level 103 98-107 mmol/L Carbon Dioxide Level 24 20-31 mmol/L Anion Gap 12 5-15 Blood Urea Nitrogen 7 L 9-23 mg/dL Creatinine 0.62 0.550-1.02 mg/dL Glomerular Filtration Rate Calc 118 >90 mL/min BUN/Creatinine Ratio 11.3 10.0-20.0 Serum Glucose 90 74-106 mg/dL Calcium Level 9.3 8.7-10.4 mg/dL Total Bilirubin 0.4 0.2-1.0 mg/dL Aspartate Amino Transferase (AST) 18 13-40 U/L Alanine Aminotransferase (ALT) < 9 7-40 U/L Alkaline Phosphatase 132 H 46-116 U/L Total Protein 6.9 5.7-8.2 g/dL Albumin 4.1 3.2-4.8 g/dL Urine Opiates Screen Neg NEGATIVE Urine Fentanyl Screen Neg NEGATIVE Urine Barbiturates Screen Neg NEGATIVE Urine Phencyclidine Screen Neg NEGATIVE Urine Amphetamines Screen Neg NEGATIVE Urine Benzodiazepines Screen Neg NEGATIVE Urine Cocaine Screen Neg NEGATIVE Urine Cannabinoids Screen Neg NEGATIVE Treponema pallidum Antibody Non-reactive Negative Hepatitis C Antibody Negative Negative Assessment Assessment A: 35yo IUP@39.0wks Induction of Labor for GDMA2 AMA Anxiety Category I EFM AROM, clear fluid GBS positive Plan Plan P: Continue with IV pitocin monitoring per order Pain mgmt- epidural Continue antibiotic coverage for GBS treatment Accucheck Q2hr now Frequent position changes in bed encouraged Limit SVE unless necessary Intrauterine resuscitation PRN Anticipate Plan discussed with: Patient Visit Coding OBGYN Date of Service: Mar 14, 2025 Billing Provider: GIULIANO HENSON CNM MEDICAL DOCTOR NUCLEAR MEDICINE Common Visit Codes: [id number] INP/OBS CARE(HIGH) GIULIANO HENSON CNM Mar 14, 2025 15:15
[2025-03-14] MEDS ORDERED: ACETAMINOPHEN 325 MG TAB PO PRN (16:45)
--- NOTE | 2025-03-14 16:47 | LDN2 ---
Labor and Delivery Note Date 03/14/25 Age 35 4 Para 4 now AB 0 EDC 03/21/2025 EGA 39.0 Diagnosis IOL for GDMA2 then Vaginal Delivery: VTX Vacuum Assisted: No Placenta: Spontaneous Sex: Female Weight 6lb 7oz 2930g Apgars 7/8 Nuchal Cord Transected: No Amniotic Fluid: Clear Anesthesia Epidural Episiotomy: No Extension: No Repaired with N/A EBL 200 Labs Laboratory Tests 09/07/24 12:52: Hepatitis B Surface Antigen Negative, HIV (1&2) Antibody Negative, Rubella Antibody Positive Blood Bank 03/14/25 07:26: Blood Type O POSITIVE Complications None Conditions Stable Licensed Bondsman Somu Comments/Significant Med Patricia At 1620 this 35yo now delivered a viable Female infant by w/ APGARS 7/8. OLGA. placed skin to skin on pts chest. Cord clamped and cut after 1 minute. Cord blood sent. Intact 3-vessel cord placenta delivered spontaneously, Seng. Pitocin IV bolus started. TXA administered. Placenta sent to pathology. Patient had epidural. Cervix/vagina/perineum inspected (intact). Periurethral abrasion noted, hemostatic. Fundus at U, firm, midline, and light lochia. QBL 200ml. VSS. Count correct x2. Patient to care and baby to couplet care, both stable. Visit Coding OBGYN Date of Service: Mar 14, 2025 Billing Provider: GIULIANO HENSON CNM PRINTER FLOOR COVERING ASSISTANT Common Visit Codes: PROCEDURE ONLY PRINTER FLOOR COVERING ASSISTANT Procedure Codes: 90597-SBI DEL INCLUDING DEEPA BUTTS STUDENTMDW Mar 14, 2025 16:47
[2025-03-14] MEDS: LACT. RINGERS/OXYTOCIN 20UNITS 500 ML IV ONE ×2 (17:31→17:32)
[2025-03-14 18:30] VITALS: BP 113/57; PULSE 101; RESP 16; TEMP 98.8; O2SAT 100
[2025-03-14] MEDS ORDERED: LACT. RINGERS/OXYTOCIN 20UNITS 1,000 ML IV SCH (20:45)
[2025-03-14] MEDS ORDERED: OXYTOCIN 10UNIT/ML 1ML VIAL IM ONE (20:45)
[2025-03-14] MEDS ORDERED: OXYTOCIN 20 UNT in SODIUM CHLORIDE 0.9% 1,000 ML IV ONE (20:45)
[2025-03-14 22:44] VITALS: BP 111/53; PULSE 89; RESP 16; TEMP 98.5; O2SAT 100
--- NOTE | 2025-03-15 01:19 | DVHPN2 ---
Progress Note Date Seen: Mar 15, 2025 Subjective S: bleeding is less, eating food without issues, denies lightheaded/dizziness, pain well controlled with oral medications, no concerns with urinating, passing flatus, no BM yet, ambulating well, vital signs Vital Sign Date Time Temp Pulse Resp B/P (MAP) Pulse Ox O2 Delivery O2 Flow Rate FiO2 03/14/25 22:44 98.5 89 16 111/53 (72) 100 98.5 03/14/25 18:30 Room Air Total Intake and Output 03/14/25 03/14/25 03/15/25 15:00 23:00 07:00 Intake Total 76 ml Output Total 1250 ml Balance -1174 ml medications Current Medications Medications Dose Ordered Sig/Napoleon Route Start Time Stop Time Status Last Admin Dose Admin Maris Jeffers 1 pad PRN PRN TOP 03/14/25 07:15 03/14/25 08:04 1 PAD Sodium Lauryl Sulfate 240 ml PRN PRN TOP 03/14/25 07:15 03/14/25 08:04 240 ML Benzocaine 1 applic PRN PRN TOP 03/14/25 07:15 03/14/25 08:04 1 APPLIC Butorphanol Tartrate 1 mg Q4HPRN PRN IV 03/14/25 07:15 Cancel Butorphanol Tartrate 2 mg Q4HPRN PRN IV 03/14/25 07:15 Cancel Misoprostol 50 mcg Q4HPRN PRN PO 03/14/25 07:15 Cancel Famotidine 20 mg Q12H IV 03/14/25 08:45 03/14/25 09:08 20 MG Ibuprofen 600 mg Q6HP PRN PO 03/14/25 16:45 Acetaminophen 650 mg Q6HPRN PRN PO 03/14/25 16:45 Prenat Multivit/ [place]/Iron/Folic Ac 1 DAILY PO 03/15/25 10:00 Oxytocin 1,000 ml @ 6 ml/hr Q24H IV 03/14/25 20:45 UNV Terbutaline Sulfate 0.25 mg ONCE PRN SC 03/14/25 20:45 UNV laboratory and microbiology Laboratory Tests 03/14/25 07:26 Test 03/14/25 07:26 Range/Units Serum Glucose 90 74-106 mg/dL Objective O: VSS Chest: heart sounds normal and lung sounds clear bilaterally Abd: soft, non-tender, fundus at U/firm/midline, active bowel sounds, no rebound or guarding Perineum: intact, no erythema/edema noted Ext: Non-tender, No edema, 2+ BLE DTRs Lochia: minimal See lab results Assessment/Plan A/P: 35yo now PPD#1 s/p -Continue with routine PP care Plan discussed with: Patient Visit Coding OBGYN Date of Service: Mar 15, 2025 Billing Provider: GIULIANO HENSON CNM GENERAL CARGO CLERK Common Visit Codes: [id number] INP/OBS CARE(MOD) GIULIANO HENSON CNM Mar 15, 2025 01:19
[2025-03-15] MEDS: IBUPROFEN 600 MG TAB PO PRN (01:35)
[2025-03-15 03:00] VITALS: BP 106/67; PULSE 75; RESP 16; TEMP 97.8; O2SAT 100
[2025-03-15 07:10] VITALS: BP 100/62; PULSE 74; RESP 16; TEMP 97.7; O2SAT 97
[2025-03-15 09:07] LABS: Hematocrit 34.2 % (36.0-46.0); Hemoglobin 11.7 g/dL (12.2-16.2); Mean Corpuscular Hemoglobin 32.1 pg (28.0-32.0); Mean Corpuscular Volume 93.5 fL (80.0-100.0); Nucleated Red Blood Cells % 0.1 %
[2025-03-15] MEDS: PRENATAL VITAMIN TAB PO SCH (09:25)
[2025-03-15 11:20] VITALS: BP 115/69; PULSE 72; RESP 16; TEMP 97.7; O2SAT 98
[2025-03-15] MEDS ORDERED: TRANEXAMIC ACID 1,000 mg/10ml INJ VIAL IV ONE (12:32)
[2025-03-15 15:30] VITALS: BP 109/75; PULSE 64; RESP 18; TEMP 97.8; O2SAT 98
--- NOTE | 2025-03-15 17:16 | DVHINCON2 ---
Date of Service if different f: Mar 15, 2025 Consultation ([place]) Labs Laboratory Tests Test 03/14/25 07:26 03/14/25 11:12 03/15/25 08:39 Prothrombin Time 10.0 sec (9.3-11.8) Prothromb Time International Ratio 0.94 (0.9-1.15) Activated Partial Thromboplast Time 29.4 SEC (24.5-34.5) Urine Color Light-yellow (Yellow) Urine Clarity Clear (Clear) Urine pH 6.5 (5.0-9.0) Urine Specific [place] 1.015 (1.001-1.035) Urine Protein Negative (Negative) Urine Ketones 1+ (Negative) Urine Blood Negative /uL (Negative) Urine Nitrite Negative (Negative) Urine Bilirubin Negative (Negative) Urine Urobilinogen Normal mg/dL (Negative) Urine Leukocyte Esterase Negative /uL (Negative) Urine RBC <1 /hpf (0 - 4) Urine Microscopic WBC 2 /HPF (0-5) Urine Squamous Epithelial Cells Few /hpf (<5) Urine Bacteria None seen /hpf (None Seen) Urine Glucose Normal mg/dL (Normal) Sodium Level 139 mmol/L (136-145) Potassium Level 3.6 mmol/L (3.5-5.1) Chloride Level 103 mmol/L (98-107) Carbon Dioxide Level 24 mmol/L (20-31) Anion Gap 12 (5-15) Blood Urea Nitrogen 7 mg/dL (9-23) Creatinine 0.62 mg/dL (0.550-1.02) Glomerular Filtration Rate Calc 118 mL/min (>90) BUN/Creatinine Ratio 11.3 (10.0-20.0) Serum Glucose 90 mg/dL (74-106) Calcium Level 9.3 mg/dL (8.7-10.4) Total Bilirubin 0.4 mg/dL (0.2-1.0) Aspartate Amino Transf (AST/SGOT) 18 U/L (13-40) Alanine Aminotransferase (ALT/SGPT) < 9 U/L (7-40) Alkaline Phosphatase 132 U/L (46-116) Total Protein 6.9 g/dL (5.7-8.2) Albumin 4.1 g/dL (3.2-4.8) Urine Opiates Screen Neg (NEGATIVE) Urine Fentanyl Screen Neg (NEGATIVE) Urine Barbiturates Screen Neg (NEGATIVE) Urine Phencyclidine Screen Neg (NEGATIVE) Urine Amphetamines Screen Neg (NEGATIVE) Urine Benzodiazepines Screen Neg (NEGATIVE) Urine Cocaine Screen Neg (NEGATIVE) Urine Cannabinoids Screen Neg (NEGATIVE) Treponema pallidum Antibody Non-reactive (Negative) Hepatitis C Antibody Negative (Negative) Bedside Glucose 101 mg/dl (70-106) White Blood Count 8.9 10^3/uL (4.4-10.8) Red Blood Count 3.66 10^6/uL (4.0-5.20) Hemoglobin 11.7 g/dL (12.2-16.2) Hematocrit 34.2 % (36.0-46.0) Mean Corpuscular Volume 93.5 fL (80.0-100.0) Mean Corpuscular Hemoglobin 32.1 pg (28.0-32.0) Mean Corpuscular Hemoglobin Concent 34.4 g/dL (32.0-36.0) Red Cell Distribution Width 14.1 % (11.8-14.3) Platelet Count 204 10^3/uL (140-450) Mean Platelet Volume 8.3 fL (6.9-10.8) Neutrophils (%) (Auto) 76.9 % (37.0-80.0) Lymphocytes (%) (Auto) 15.8 % (10.0-50.0) Monocytes (%) (Auto) 6.2 % (0.0-12.0) Eosinophils (%) (Auto) 0.8 % (0.0-7.0) Basophils (%) (Auto) 0.3 % (0.0-2.0) Neutrophils # (Auto) 6.9 10 ^3/uL (1.6-8.6) Lymphocytes # (Auto) 1.4 10 ^3/uL (0.4-5.4) Monocytes # (Auto) 0.6 10 ^3/uL (0-1.3) Eosinophils # (Auto) 0.1 10 ^3/uL (0-0.8) Basophils # (Auto) 0 10 ^3/uL (0-0.2) Nucleated Red Blood Cells 0.1 % Appetite: Good Appearance: Stated age, Groomed Psychomotor activity: WNL Behavioral: Cooperative Eye contact: Appropriate Speech: WNL Affect: Appropriate, Mood Congruent Mood: Euthymic Thought processes: Linear/Goal-directed Thought content: WNL Suicidal ideations: Absent Homicidal ideations: Absent Orientation: Person, Place, Time, Situation Memory intact: Recent Intellect: Average Abstractability: WNL Concentration: Adequate Attention: Adequate Judgement: WNL Insight: Fair Vitals Vital Signs Date Time Temp Pulse Resp B/P (MAP) Pulse Ox O2 Delivery O2 Flow Rate FiO2 03/15/25 15:30 97.8 64 18 109/75 (86) 98 97.8 03/15/25 07:10 Room Air Current medications Current Medications Medications Dose Ordered Sig/[place] Route Start Time Stop Time Status Last Admin Dose Admin Witch Aury 1 pad PRN PRN TOP 03/14/25 07:15 03/14/25 08:04 1 PAD Sodium Lauryl Sulfate 240 ml PRN PRN TOP 03/14/25 07:15 03/14/25 08:04 240 ML Benzocaine 1 applic PRN PRN TOP 03/14/25 07:15 03/14/25 08:04 1 APPLIC Butorphanol Tartrate 1 mg Q4HPRN PRN IV 03/14/25 07:15 Cancel Butorphanol Tartrate 2 mg Q4HPRN PRN IV 03/14/25 07:15 Cancel Misoprostol 50 mcg Q4HPRN PRN PO 03/14/25 07:15 Cancel Famotidine 20 mg Q12H IV 03/14/25 08:45 03/14/25 09:08 20 MG Ibuprofen 600 mg Q6HP PRN PO 03/14/25 16:45 03/15/25 01:35 600 MG Acetaminophen 650 mg Q6HPRN PRN PO 03/14/25 16:45 Prenat Multivit/ Fell Cutter/Iron/Folic Ac 1 DAILY PO 03/15/25 10:00 03/15/25 09:25 1 Oxytocin 1,000 ml @ 6 ml/hr Q24H IV 03/14/25 20:45 UNV Terbutaline Sulfate 0.25 mg ONCE PRN SC 03/14/25 20:45 UNV Medication adjusted: No Labs ordered: No Diagnosis: adjustment disorder Plan : This is a 35-year-old female with no known prior mental health history, present here for induction of labor. Today, scored a 12 on the [place] scale. Patient currently denies suicidal/homicidal thoughts. She presents with normal, euthymic affect and appears future-oriented. Patient may discharge home after medical clearance. History of Present Illness Reason for Consult : Patient scored a 12 on [place] rating scale HPI : This 35-year-old female with no known prior mental health history, gave to a health, 4th child after presenting here for induction of labor. Patient is evaluated via telepsychiatry platform. She reports feeling tired but happy and excited for her new baby girl. She attributed score to not quite understanding the questions and being sleepy when the questionnaire was given. She denies any prior history of depression or psychosis. She describes past births as normal. She denies feeling depressed, anhedonia or hopeless. She denies suicidal/homicidal ideation or thoughts of not wanting to live. This is her 4th baby and first girl. She denies any prior history of taty or psychosis. And presently, no auditory/visual hallucinations or paranoid thoughts. Past Psychiatric History : She denies any prior mental health diagnosis or use of psychotropic medications. She denies prior psychiatric admissions, 5150holds or suicide attempts. She denies any current or past outpatient mental health support. Past Medical History : per teresa review Social History : She lives with partner and father of children. She denies history or current abuse. No known prior trauma history. 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 She denies any known family history or substance abuse. She reports adequate support at home with partner and family. ADEOLA TAMEZ DNP Mar 15, 2025 17:16
[2025-03-15 19:00] VITALS: BP 105/67; PULSE 86; RESP 18; TEMP 97.7; O2SAT 98
[2025-03-15 22:10] VITALS: BP 105/67; PULSE 86; RESP 16; TEMP 97.7; O2SAT 97
--- NOTE | 2025-03-15 22:19 | DVHPN2 ---
Progress Note Date Seen: Mar 15, 2025 Subjective S: Lochia minimal Tolerating regular diet well. Ambulating and voiding well w/o feeling lightheaded or dizzy. Passing flatus but no BM yet. Breast feeding. Contraceptive plan: IUD or BTL Desires and requests to be discharged home today vital signs Vital Sign Date Time Temp Pulse Resp B/P (MAP) Pulse Ox O2 Delivery O2 Flow Rate FiO2 03/15/25 19:00 97.7 86 18 105/67 (80) 98 97.7 03/15/25 19:00 Room Air Total Intake and Output 03/14/25 03/14/25 03/15/25 15:00 23:00 07:00 Intake Total 76 ml Output Total 1250 ml 300 ml Balance -1174 ml -300 ml medications Current Medications Medications Dose Ordered Sig/[place] Route Start Time Stop Time Status Last Admin Dose Admin Silviajean claude Aury 1 pad PRN PRN TOP 03/14/25 07:15 03/14/25 08:04 1 PAD Sodium Lauryl Sulfate 240 ml PRN PRN TOP 03/14/25 07:15 03/14/25 08:04 240 ML Benzocaine 1 applic PRN PRN TOP 03/14/25 07:15 03/14/25 08:04 1 APPLIC Butorphanol Tartrate 1 mg Q4HPRN PRN IV 03/14/25 07:15 Cancel Butorphanol Tartrate 2 mg Q4HPRN PRN IV 03/14/25 07:15 Cancel Misoprostol 50 mcg Q4HPRN PRN PO 03/14/25 07:15 Cancel Famotidine 20 mg Q12H IV 03/14/25 08:45 03/14/25 09:08 20 MG Ibuprofen 600 mg Q6HP PRN PO 03/14/25 16:45 03/15/25 01:35 600 MG Acetaminophen 650 mg Q6HPRN PRN PO 03/14/25 16:45 Prenat Multivit/ Carpenter Assembler/Iron/Folic Ac 1 DAILY PO 03/15/25 10:00 03/15/25 09:25 1 Oxytocin 1,000 ml @ 6 ml/hr Q24H IV 03/14/25 20:45 UNV Terbutaline Sulfate 0.25 mg ONCE PRN SC 03/14/25 20:45 UNV laboratory and microbiology Laboratory Tests 03/15/25 08:39 03/14/25 07:26 Test 03/14/25 07:26 Range/Units Serum Glucose 90 74-106 mg/dL Objective O: A&O x3 NAD. Afebrile, VSS Chest: heart and lung sounds normal. Breasts: Nipples intact w/o cracks or soreness Abdomen: normal BS, soft, non-tender, no rebound or guarding, fundus firm @ U- 1, lochia minimal Perineum:- Intact, no edema, or erythema. Extremities: no edema or tenderness Lochia - minimal Assessment/Plan A/P 35 yo now ppd#_ s/p , doing well. h/o GDM Blood Type: O Rh: Positive Breast feeding Rubella Immune Pain control with oral medications Bowel regimen: Increase fluid intake and fiber in diet, Laxative PRN PP BCM Plan: IUD or BTL Discharge plan: Discharge home later today Plan discussed with: Patient, Spouse Visit Coding OBGYN Date of Service: Mar 15, 2025 Billing Provider: BRUNO TORRES CNM ENERGY ADVISOR Common Visit Codes: [id number] INP/OBS CARE(HIGH) BRUNO TORRES CNM Mar 15, 2025 22:19
--- NOTE | 2025-03-15 22:56 | DVHDS2 ---
Discharge Summary Date of Admission Mar 14, 2025 at 07:13 Date of Discharge: Mar 15, 2025 Admitting Diagnosis IUP at39w 0d AMA GDMA2 GBS Positive IOL for GDMA2 Labs/Diagnostic Data: Laboratory Results Test 03/15/25 08:39 03/14/25 11:12 03/14/25 07:26 White Blood Count 8.9 10^3/uL (4.4-10.8) Red Blood Count 3.66 10^6/uL (4.0-5.20) Hemoglobin 11.7 g/dL (12.2-16.2) Hematocrit 34.2 % (36.0-46.0) Mean Corpuscular Volume 93.5 fL (80.0-100.0) Mean Corpuscular Hemoglobin 32.1 pg (28.0-32.0) Mean Corpuscular Hemoglobin Concent 34.4 g/dL (32.0-36.0) Red Cell Distribution Width 14.1 % (11.8-14.3) Platelet Count 204 10^3/uL (140-450) Mean Platelet Volume 8.3 fL (6.9-10.8) Neutrophils (%) (Auto) 76.9 % (37.0-80.0) Lymphocytes (%) (Auto) 15.8 % (10.0-50.0) Monocytes (%) (Auto) 6.2 % (0.0-12.0) Eosinophils (%) (Auto) 0.8 % (0.0-7.0) Basophils (%) (Auto) 0.3 % (0.0-2.0) Neutrophils # (Auto) 6.9 10 ^3/uL (1.6-8.6) Lymphocytes # (Auto) 1.4 10 ^3/uL (0.4-5.4) Monocytes # (Auto) 0.6 10 ^3/uL (0-1.3) Eosinophils # (Auto) 0.1 10 ^3/uL (0-0.8) Basophils # (Auto) 0 10 ^3/uL (0-0.2) Nucleated Red Blood Cells 0.1 % POC Glucose 101 mg/dl (70-106) Prothrombin Time 10.0 sec (9.3-11.8) Prothrombin Time INR 0.94 (0.9-1.15) Activated Partial Thromboplast Time 29.4 SEC (24.5-34.5) Urine Color Light-yellow (Yellow) Urine Clarity Clear (Clear) Urine pH 6.5 (5.0-9.0) Urine Specific [place] 1.015 (1.001-1.035) Urine Protein Negative (Negative) Urine Ketones 1+ (Negative) Urine Blood Negative /uL (Negative) Urine Nitrite Negative (Negative) Urine Bilirubin Negative (Negative) Urine Urobilinogen Normal mg/dL (Negative) Urine Leukocyte Esterase Negative /uL (Negative) Urine RBC <1 /hpf (0 - 4) Urine Microscopic WBC 2 /HPF (0-5) Urine Squamous Epithelial Cells Few /hpf (<5) Urine Bacteria None seen /hpf (None Seen) Urine Glucose Normal mg/dL (Normal) Sodium Level 139 mmol/L (136-145) Potassium Level 3.6 mmol/L (3.5-5.1) Chloride Level 103 mmol/L (98-107) Carbon Dioxide Level 24 mmol/L (20-31) Anion Gap 12 (5-15) Blood Urea Nitrogen 7 mg/dL (9-23) Creatinine 0.62 mg/dL (0.550-1.02) Glomerular Filtration Rate Calc 118 mL/min (>90) BUN/Creatinine Ratio 11.3 (10.0-20.0) Serum Glucose 90 mg/dL (74-106) Calcium Level 9.3 mg/dL (8.7-10.4) Total Bilirubin 0.4 mg/dL (0.2-1.0) Aspartate Amino Transferase (AST) 18 U/L (13-40) Alanine Aminotransferase (ALT) < 9 U/L (7-40) Alkaline Phosphatase 132 U/L (46-116) Total Protein 6.9 g/dL (5.7-8.2) Albumin 4.1 g/dL (3.2-4.8) Urine Opiates Screen Neg (NEGATIVE) Urine Fentanyl Screen Neg (NEGATIVE) Urine Barbiturates Screen Neg (NEGATIVE) Urine Phencyclidine Screen Neg (NEGATIVE) Urine Amphetamines Screen Neg (NEGATIVE) Urine Benzodiazepines Screen Neg (NEGATIVE) Urine Cocaine Screen Neg (NEGATIVE) Urine Cannabinoids Screen Neg (NEGATIVE) Treponema pallidum Antibody Non-reactive (Negative) Hepatitis C Antibody Negative (Negative) Other Laboratory Tests 03/15/25 08:39 03/14/25 07:26 Brief Hx & Hospital Course: Ms. Coronado was admitted on 03/14/25 at 39w 0d EGA for IOL d/t GDMA2, Induction process started with oxytocin and patient then had an uneventful labor, got labor epidural for pain relief. She progressed to 2nd stage of labor and had a over an intact perineum. ( See Delivery Note for details) Normal course; meeting milestones w/o any problem or complications. Operations or Procedures IOL Condition at Discharge: Stable Final Diagnosis/Problems List Vaginal Delivery Discharge Disposition: Home Discharge Instruct/Medications Diet: Regular Diet comment: Routine regular diet rich in fiber, protein, iron and vitamin C with adequate fluid intake. Activity: No Restrictions, As Tolerated Activity comment: Unrestricted. Advance as tolerated. Balance activities with rest periods. No heavy lifting, pushing or straining. Pelvic rest x 6weeks Follow Up/Referral: f/u with OB care provider in 1-2weeks Medications: Ibuprofen, Vitamin Scheduled Dicyclomine Hcl (Bentyl Capsule), 1 CAP PO Q6HPRN Ferric Maltol (Accrufer), 30 MG PO BID Metformin Hydrochloride (Metformin Hcl), 500 MG PO HS, (Reported) Nitrofurantoin Monohydrate Mac (Macrobid), 100 MG PO BID Vit W/ Fe Fum-Iron Po (Concept Dha), 1 CAP PO DAILY Sennosides-Docusate Sodium (Stimulant Laxative 8.6-50 mg), 1 TAB PO DAILY, (Reported) Scheduled PRN Acetaminophen (Acetaminophen), 650 MG PO Q6HP PRN Acetaminophen (Acetaminophen), 500 MG PO Q4HP PRN Docusate Sodium (Colace), 100 MG PO DAILYP PRN Hydrocodone-Acetaminophen (Hydrocodone Bitartrate/AC 5-325 mg), 1 TAB PO Q4HPRN PRN for PAIN SCALE 1 THRU 6, (Reported) Ibuprofen Micronized (Motrin Tablet), 600 MG PO Q6HP PRN Ibuprofen Micronized (Motrin Tablet), 600 MG PO TID PRN Ondansetron Odt 4MG Tab (Zofran Po), 4 MG PO Q6HP PRN Discharge Statement: self care instructions given. emergency signs and symptoms including but not limited to pre-eclampsia precautions and signs of infection, PPH & of PPD reviewed with patient and partner. "Patient was advised to return to the ER or call 911 if any headaches, dizziness, shortness of breath, chest pain, abdominal pain, bleeding, fevers, or worsening of medical condition. Patient was counseled about treatment plan, medications, possible side effects, patientverbalized understanding. All questions were answered to the best of my ability. This discharge took greater then 30 minutes in planning, reviewing documentation, counseling the patient, and discussing with other team members." ASSESSMENT ASSESSMENT Hospital Course Ms. Coronado was admitted on 03/14/25 at 39w 0d EGA for IOL d/t GDMA2, Induction process started with oxytocin and patient then had an uneventful labor, got labor epidural for pain relief. She progressed to 2nd stage of labor and had a over an intact perineum. ( See Delivery Note for details) Normal course; meeting milestones w/o any problem or complications. Assessment Vaginal Delivery h/o GDMA2 Visit Coding OBGYN Date of Service: Mar 15, 2025 Billing Provider: BRUNO TORRES CNM SOLAR SALES REPRESENTATIVE AND ASSESSOR Common Visit Codes: [id number]/[id number] DISCH DAY <30MIN BRUNO TORRES CNM Mar 15, 2025 22:56
== END 2025-03-15 22:03 | disposition home or self-care (01) | DRG 560 ==
LOC: UNDOADMIN 03-14 06:53 → LDRP 03-14 06:53
PROVIDERS: ADMIT Obstetrics & Gynecology; ATTEND Obstetrics & Gynecology
PROC: 10E0XZZ Delivery of Products of Conception, External Approach (ICD-10-PCS; principal; 2025-03-14)
PROC: 00HU33Z Insertion of Infusion Device into Spinal Canal, Percutaneous Approach (ICD-10-PCS; 2025-03-14)
PROC: 3E0R3BZ Introduction of Anesthetic Agent into Spinal Canal, Percutaneous Approach (ICD-10-PCS; 2025-03-14)
PROC: 3E033VJ Introduction of Other Hormone into Peripheral Vein, Percutaneous Approach (ICD-10-PCS; 2025-03-14)
DX: O24.425 Gestational diabetes mellitus in childbirth, controlled by oral hypoglycemic drugs (principal); Z37.0 Single live birth; O99.344 Other mental disorders complicating childbirth; F43.22 Adjustment disorder with anxiety; O99.824 Streptococcus B carrier state complicating childbirth; Z3A.39 39 weeks gestation of pregnancy; O71.82 Other specified trauma to perineum and vulva
CPT/HCPCS: 36415; 59409; 62282; 80053; 80307; 81001; 82948; 82962; 85025; 85610; 85730; 86780; 86803; 86850; 86900; 86901; 94760; 94762; 96360; 96361; 96365; 96366; 96374; 96375; G0378; J2540; J2590; J3490; J7060

== ENCOUNTER 2025-03-10 01:33 | Observation (INO) | payer MEDICAID ==
--- NOTE | 2025-03-10 13:09 | DVH ---
BIOPHYSICAL PROFILE HISTORY: GDMA2 TECHNIQUE: Multiple transabdominal real-time grayscale sonographic images through the gravid uterus o f the fetus with duplex doppler color flow and M-mode spectral analysis FINDINGS: BIOPHYSICAL PROFILE: breathing score: 2 movement score: 2 tone score: 2 Quantitative МАРИЯ score: 2 (МАРИЯ: 8.0 cm.) Total score: 8/8 Single live fetus in cephalic presentation. heart rate 133 beats per minute. Anterior placenta without previa or abruption. A 1.8 x 2.0 x1 .6 cm placental li is noted. Biophysical profile score 8/8 corresponding to an FAVIAN of 03/21/25 IMPRESSION: Biophysical profile score: 8/8
--- NOTE | 2025-03-10 13:40 | DVHDS2 ---
Physician Discharge Progress N Final Diagnosis: gdm 38wks Operations or Procedures: Operations or Procedures nst reactive reviwed,sono Condition on Discharge: Good Disposition: Home Discharge Instructions: Diet: Consistent carbohydrate Activity: No Restrictions, As Tolerated Medications: na Follow Up Care: Specialist: 2d Discharge Statement: "Patient was advised to return to the ER or call 911 if any headaches, dizziness, shortness of breath, chest pain, abdominal pain, bleeding, fevers, or worsening of medical condition. Patient was counseled about treatment plan, medications, possible side effects, patientverbalized understanding. All questions were answered to the best of my ability. This discharge took greater then 30 minutes in planning, reviewing documentation, counseling the patient, and discussing with other team members." Visit Coding OBGYN Date of Service: Mar 10, 2025 Billing Provider: ZHEN LAND DO ELECTRONIC WARFARE TECHNICAL Common Visit Codes: [id number] OBS CARE (HIGH) ELECTRONIC WARFARE TECHNICAL Procedure Codes: 92126-28- NON-STRESS TEST ZHEN LAND DO Mar 10, 2025 13:40
== END 2025-03-10 13:53 | disposition home or self-care (01) ==
LOC: LDRP 12:00
PROVIDERS: ADMIT Obstetrics & Gynecology; ATTEND Obstetrics & Gynecology
DX: O24.419 Gestational diabetes mellitus in pregnancy, unspecified control (principal); Z3A.38 38 weeks gestation of pregnancy; Z98.890 Other specified postprocedural states
CPT/HCPCS: 59025; 76819; 81002; 82948; G0378

== ENCOUNTER 2025-04-25 08:42 | Outpatient (CLI) | payer MEDICAID | END 2025-04-25 17:00 | disposition home or self-care (01) | LOC: LAB 08:42 | PROVIDERS: ATTEND Obstetrics & Gynecology | DX: Z34.83 Encounter for supervision of other normal pregnancy, third trimester (principal); Z3A.00 Weeks of gestation of pregnancy not specified | CPT/HCPCS: 82951 ==